=== PATIENT | male | born 1960 | race Caucasian/White ===

== ENCOUNTER 2020-08-17 15:46 | Emergency (ER) | payer OTHER, SELFPAY ==
[2020-08-17 15:49] VITALS: BP 149/96; PULSE 85; RESP 16; TEMP 36.1; O2SAT 96; BMI 31.2
--- NOTE | 2020-08-17 15:55 | ED.DCSUM_ITS ---
History of Present Illness Chief Complaint: Abd Pain Informant: Patient Onset: Days Context: Gradual Onset Timing: Intermittent Current Severity: Moderate Maximum Severity: Moderate Narrative: The patient is an otherwise healthy 59-year-old male who presents to the emergency department abdominal pain. The patient states that symptoms began on Monday director telemetry. He states that he went to sleep and had a dull aching pain in his left lower quadrant. He states he woke with worsening pain. He states he tried to move his bowels felt like he moved a lot of gas, but then felt like he had chills and sweats. States yesterday, it was not as significant, but it was still very tender in the area. He states if he moves, twists, or coughs he gets pain. He has had no further fever or chills. He does admit to some mild constipation. He does have history of 2 prior hernia repairs states the pain feels similar, but is a little bit different. He went to urgent care who was concerned for diverticulitis and sent him to the emergency department. Prior similar symptoms: No Recent Illness/Hospitalization: No Past Medical History - Allergies and Home Meds Allergies/Adverse Reactions: Allergies No Known Allergies Allergy (Verified 08/17/20 15:47) Primary Care Physician: Care Physician,No Primary [Primary Care Provider] - Prior records reviewed: Yes Past Medical History: None Surgical History: herniorrhaphy Lives: With Family Smoking Status: Former smoker Review of Systems General: Denies: Chills, Fever, Sweats Eyes: Denies: Visual changes - bilaterally, Diplopia ENT: Denies: Rhinorrhea, Sore throat Cardiovascular: Denies: Chest pain, Palpitations Respiratory: Denies: Dyspnea, Cough, Dyspnea on exertion Gastrointestinal: Reports: Abdominal pain. Denies: Nausea, Vomiting, Diarrhea, Melena, Hematochezia Genitourinary: Denies: Dysuria, Hematuria, Frequency Musculoskeletal: Denies: Back pain, Extremity Pain Skin: Denies: Rash, Wounds Neurological: Denies: Headache, Weakness, Numbness Physical Exam Vital Signs/Narrative: Vital Signs Temp Pulse Resp BP Pulse Ox 08/17/20 15:49 97 F L 85 16 149/96 H 96 Inital Vital Signs reviewed: Yes General: Well nourished, Well developed, No Acute Distress Head: Normocephalic, Atraumatic Eyes: Perrl, EOMI ENT: Moist mucous membranes, No rhinorrhea Neck: Supple, Nontender Cardiovascular: Regular rate, Regular rhythm, No murmurs Respiratory: No distress, CTA bilaterally, Chest nontender Abdomen: Soft, Nondistended, Normal bowel sounds, Tender. Negative for: Guarding, Rebound tenderness Back: Nontender, Normal Inspection Extremities: Nontender, No edema Skin: Normal color, No rash Neurological: Alert, Oriented x3, Cranial nerves II-XII grossly intact, Normal Strength, Normal Sensation Psychological: Normal affect, Normal Mood Diagnostic/Tx/Re-eval Clinical Impression(s) from Imaging Studies Abdomen/Pelvis CT 08/17/20 15:55 IMPRESSION: Finding consistent with acute distal descending colon diverticulitis without perforation or abscess. Other chronic findings as above. Electronically Signed: Asif Woodard MD at 18:24 EST , Service support , Abnormal Lab Results 08/17/20 08/17/20 08/17/20 16:05 16:05 16:10 WBC 13.0 H RBC 4.98 Hgb 16.0 Hct 44.0 MCV 88.4 MCH 32.1 H MCHC 36.4 H RDW Std Deviation 40.0 RDW Coeff of Martita 13.1 Plt Count 245 MPV 9.2 Immature Gran % (Auto) 0.500 Neut % (Auto) 78.7 H Lymph % (Auto) 12.5 L Reynolds % (Auto) 7.3 Eos % (Auto) 0.5 Baso % (Auto) 0.5 Absolute Neuts (auto) 10.2 H Absolute Lymphs (auto) 1.62 Nucleated RBC % 0 Sodium 135 L Potassium 3.7 Chloride 101 Carbon Dioxide 26.0 Anion Gap 8 BUN 12 Creatinine 1.14 Estim Creat Clear Calc 84.42 Est GFR (MDRD) Af Amer 85 Est GFR (MDRD) Non-Af 70 BUN/Creatinine Ratio 10.5 Glucose 92 Calcium 8.8 Total Bilirubin 1.00 AST 23 ALT 30 Alkaline Phosphatase 99 Total Protein 7.9 Albumin 3.8 Globulin 4.1 Albumin/Globulin Ratio 0.9 Urine Color Yellow Urine Clarity Clear Urine pH 6.0 Ur Specific [place] 1.015 Urine Protein Negative Urine Glucose (UA) Normal Urine Ketones 5 H Urine Occult Blood 10 H Urine Nitrite Negative Urine Bilirubin Negative Urine Urobilinogen Normal Ur Leukocyte Esterase Negative Urine RBC 0 SEEN Urine WBC 0 SEEN Ur Squamous Epith Cells 0 SEEN Urine Bacteria 0 SEEN Urine Mucus 0 SEEN - Medical Decision Making The patient presents with pain in his left lower quadrant. He is afebrile. Metabolic work-up was pursued. He does have a mild leukocytosis. Otherwise labs, were unremarkable. Patient underwent CT imaging. This does show evidence of acute uncomplicated diverticulitis. There is no perforation or abscess. On reevaluation, the patient is requesting outpatient therapy. I do feel this is reasonable. He is otherwise healthy. Is not had a fever. He does not want anything for pain. Patient will be started on Cipro and Flagyl. Is given his first dose here. He will follow up with primary care in 48 hours or return with any worsening symptoms. Impression 1. Acute diverticulitis ED Disposition - Plan for ED Patient: Instructions: ED Diverticulitis Prescriptions: Ciprofloxacin [Cipro] 500 mg PO BID #14 tab Prescription Printed metroNIDAZOLE [Flagyl] 500 mg PO Q8H #21 tab Prescription Printed Hydrocodone Bitart/Apap 5-325 [[place] 5MG-325MG] 1 tab PO Q6H PRN PRN 3 Days #10 tab PRN Reason: Pain Prescription Printed Referrals: Care Physician,No Primary [Primary Care Provider] -
--- NOTE | 2020-08-17 15:55 | CT_ITS ---
STUDY: CT ABDOMEN AND PELVIS WITH CONTRAST REASON FOR EXAM: Male, 59 years old. DIVERTICULITIS, LLQ PAIN WITH NAUSEA, PREV HERNIA RADIATION DOSAGE (If Supplied By Facility): CTDIvol = ( 16.32 ) mGy, DLP = ( 1234.11 ) mGycm TECHNIQUE: Transaxial images were obtained from the dome of the diaphragm to the symphysis pubis without oral contrast. IV 100mL Isovue-370 was administered. Sagittal and coronal images were reconstructed. Individualized dose optimization techniques were used for this CT. COMPARISON: None. FINDINGS: The visualized lung bases are unremarkable. The visualized portions of the heart are within normal limits. There is decreased attenuation of the liver consistent with steatosis. There is hepatomegaly Normal gallbladder and extrahepatic biliary system. Normal spleen. Normal pancreas. Normal bilateral adrenal glands. Normal right kidney. Normal left kidney. Evaluation of the GI tract is limited by the absence of oral contrast. Normal visualized stomach. Normal small intestine. Abnormal distal descending colon with numerous diverticuli, marked bowel wall thickening, and pericolonic stranding. Findings are consistent with acute diverticulitis without perforation or abscess. The appendix is visualized and appears normal. Normal abdominal aorta. Normal inferior vena cava. Normal retroperitoneum. Normal urinary bladder. There is enlargement of the prostate gland. Normal abdominal wall. Normal osseous structures. CT/Abdomen/Pelvis W IV Cont ONLY IMPRESSION: Finding consistent with acute distal descending colon diverticulitis without perforation or abscess. Other chronic findings as above. Electronically Signed: Asif Woodard MD at 18:24 EST , Service support ,
[2020-08-17] MEDS: 0.9% Normal Saline 1,000 ML 1000 ML IV (16:05)
[2020-08-17 16:17] LABS: Absolute Lymphocyte Count 1.62 X10^3/uL (0.83-4.51); Absolute Neutrophil Count 10.2 X10^3/uL (2.0-7.7); Basophil# 0.07 X10^3/uL; Basophil% 0.5 % (0-1); Eosinophil# 0.06 X10^3/uL; Eosinophils% 0.5 % (0-5); Lymphocyte # 1.62 X10^3/ul (4.0); Lymphocyte % 12.5 % (19-41); Mean Corp Hgb Conc 36.4 g/dL (32-36); Mean Corpuscular Hgb 32.1 pg (27.0-32.0); Mean Corpuscular Volume 88.4 fL (80-94); Mean Platelet Vol. 9.2 fl (6.2-12.0); Monocyte# 0.94 X10^3/uL; Monocyte% 7.3 % (0-10); NRBC Flagged by Analyzer 0 % (0-5); Neutrophil # 10.21 X10^3/uL (2.7-7.7); Neutrophil % 78.7 % (47-70); Platelet Count 245 K/mm3 (150-450); RBC Distribution Width CV 13.1 % (11.6-14.6); Red Blood Count 4.98 M/mm3 (4.6-6.2)
[2020-08-17 16:26] LABS: Bacteria 0 SEEN /hpf (None Seen); Mucous, Urine 0 SEEN /hpf (<or=2+); Red Blood Cells-Urine 0 SEEN /hpf (0-5); Squamous Epithelial Cells - UA 0 SEEN /hpf (0-5); White Blood Cells 0 SEEN /hpf (0-5)
[2020-08-17 16:31] LABS: Color, Urine Yellow (Yellow); Glucose, Dipstick Normal (Normal); Ketone-Dipstick 5 mg/dl (Negative); Leukocyte Esterase-Dipstick Negative /ul (Negative); Nitrite-Dipstick Negative (Negative); Occult Blood-Urine 10 /ul (Negative); Protein-Dipstick Negative (Negative); Specific Gravity, Urine 1.015 (1.002-1.030); Urine Bilirubin Dipstick Negative (Negative); Urine Clarity Clear (Clear); Urine Urobilinogen Normal (Normal)
[2020-08-17 16:57] LABS: ALB/GLOB Ratio 0.9 RATIO (0.9-2.4); AST(SGOT) 23 U/L (15-37); Alanine Aminotransfer ALT/SGPT 30 U/L (16-61); Albumin, Serum 3.8 g/dL (3.2-5.0); Alkaline Phosphatase 99 U/L (45-117); Anion Gap 8 (5-15); BUN 12 mg/dL (7-18); BUN/Creat Ratio 10.5 RATIO (10-20); Calcium,Total 8.8 mg/dL (8.5-10.1); Chloride 101 mmol/L (98-107); Creatinine, Serum 1.14 mg/dL (0.70-1.30); EST Glomerular Filtration Rate 70 mL/min (>60); Est Glom Filt Rate - Afr Amer 85 mL/min (>60); Estimated Creatinine Clearance 84.42 ml/min; Globulin 4.1 g/dL (2.2-4.2); Glucose 92 mg/dL (74-106); Potassium 3.7 mmol/L (3.5-5.1); Protein, Total 7.9 g/dL (6.4-8.2); Sodium Level 135 mmol/L (136-145)
[2020-08-17 18:45] VITALS: BP 141/57; PULSE 69; RESP 14; O2SAT 96
[2020-08-17] MEDS: Ciprofloxacin 500 MG Tablet PO (18:45)
[2020-08-17] MEDS: metroNIDAZOLE 500 MG Tablet PO (18:45)
== END 2020-08-17 18:46 | disposition home or self-care (01) ==
LOC: ED 16:48
PROVIDERS: Emergency Provider Emergency Medicine
DX: K57.92 Diverticulitis of intestine, part unspecified, without perforation or abscess without bleeding (principal); Z87.891 Personal history of nicotine dependence
CPT/HCPCS: 74177; 80053; 81001; 85025; 96360; 96361; 99284; J7030; Q9967

== ENCOUNTER → 2025-01-01 | Outpatient (CLI) | payer OTHER, SELFPAY ==
[2025-01-02 11:15] LABS: Cholesterol 206 mg/dL (<=200); High Density Lipoprotein 44 mg/dL; Low Density Lipoprotein Calc. 145 mg/dL; Triglycerides 87 mg/dL; Very Low Density Lipoprotein 17 mg/dL (5-40)
== END | disposition home or self-care (01) ==
LOC: MTLAB 10:44
PROVIDERS: PCP Nurse Practitioner; Referring Provider Nurse Practitioner; Visit Provider Nurse Practitioner
DX: E78.5 Hyperlipidemia, unspecified (principal)
CPT/HCPCS: 36415; 80061

== ENCOUNTER → 2025-05-06 | Outpatient (CLI) | payer OTHER, SELFPAY ==
--- OUTSIDE RECORDS SUMMARY | 2025-05-06 12:09 | XMS RPT_ITS | CCD ---
Author Organization [facility] Care Team Providers Care Emergency Service Restorer Name Role Phone Dimitry Pope MD Primary Care Provider Dania MACHINE LACER.Indira PATEL Primary Care Provide r Dania MACHINE LACER.Indira PATEL Primary Care Provide r Dimitry Pope MD Primary Care Provider Dania SALES OPERATIONS MANAGER-C, Indira Primary Care Provider Dania SALES OPERATIONS MANAGER-C, Indira Attending Provider Dania SALES OPERATIONS MANAGER-C, Indira Referring Provider Dania SALES OPERATIONS MANAGER, Indira Referring Unavailable Dania SALES OPERATIONS MANAGER, Indira Attending Unavailable Dania SALES OPERATIONS MANAGER, Indira Primary Care Unavailable INDIRA NAJERA Primary Care Unavailable INDIRA NAJERA Attending Unavailable IVETH MONTOYA Attending Unavailable INDIRA NAJERA Primary Care Unavailable IVETH MONTOYA Referring Unavailable INDIRA NAJERA Primary Care Unavailable Medications Current Medications Medication Drug Class(es) Dates Sig (Normalized) Sig (Original) ciprofloxacin 500 mg oral tablet (1 source) Quinolone Antimicrobial Start: 08-17-2020 take 1 tablet by mouth twice daily Ciprofloxacin Hcl 500 MG tablet Active 500 mg PO TWICE A DAY August 17, 2020 1:00am metroNIDAZOLE 500 mg oral tablet (1 source) Nitroimidazole Antimicrobial Start: 08-17-2020 take 1 tablet by mouth every eight hours Metronidazole 500 MG tablet Active 500 mg PO Q8H August 17, 2020 1:00am tamsulosin hydrochloride 0.4 mg oral capsule (19 sources) alpha-Adrenergic Talya Start: 11-13-2024 take 1 capsule by mouth once daily at bedtime tamsulosin (FLOMAX) 0.4 mg Indications: Nocturia Take 1 capsule by mouth daily at bedtime. 90 capsule 3 11/13/2024 Active Start: 10-28-2024 End: 11-05-2024 take 1 capsule by mouth once daily at bedtime tamsulosin (FLOMAX) 0.4 mg Indications: Nocturia Take 1 capsule by mouth daily at bedtime. 90 capsule 3 10/28/2024 11/05/2024 Discontinued Start: 04-11-2024 End: 10-22-2024 take 1 capsule by mouth once daily at bedtime tamsulosin (FLOMAX) 0.4 mg Indications: Nocturia Take 1 capsule by mouth daily at bedtime. 90 capsule 3 05/07/2024 10/22/2024 Discontinued Start: 12-20-2022 End: 04-08-2024 take 1 capsule by mouth at bedtime tamsulosin (FLOMAX) 0.4 mg Indications: Nocturia take 1 capsule by mouth at bedtime 90 capsule 3 03/28/2023 04/08/2024 Discontinued Comment on above: Take 1 capsule by mo uth daily at bedtime. take 1 capsule by mo uth at bedtime Completed/Discontinued Medications Medication Drug Class(es) Dates Sig (Normalized) Sig (Original) acetaminophen 325 mg / HYDROcodone bitartrate 5 mg oral tablet (1 source) Opioid Agonist Start: 08-17-2020 End: 08-20-2020 Hydrocodone-Acetami nophen 1 TABLET tablet Discontinued 1 {tbl} PO EVERY 6 HOURS NEEDED as needed for Pain 10 August 17, 2020 August 19, 2020 1:00am August 20, 2020 1:02am Problems Active Problems Problem Classification Problem Date Documented Da te Episodic/Chronic Disorders of lipid metabolism (3 sources) Dyslipidemia; Translations: [Hyperlipidemia, unspecified] Onset: 12-27-2024 12-27-2024 Chronic Immunizations and screening for infectious disease (2 sources) Viral screening status; Translations: [Encounter for screening for other viral diseases] Episodic Osteoarthritis (1 source) Arthropathy of joint of hand; Translations: [Primary osteoarthritis, unspecified hand] 07-31-2023 Chronic Other nutritional; endocrine; and metabolic disorders (16 sources) Obese class I; Translations: [Obesity, unspecified] Onset: 11-16-2022 11-16-2022 Chronic Residual codes; unclassified (1 source) Family history of hemochromatosis; Translations: [Family history of other endocrine, nutritional and metabolic diseases] Episodic Residual codes; unclassified (2 sources) Pain; Translations: [Pain, unspecified] 07-31-2023 Episodic Screening and history of mental health and substance abuse codes (2 sources) Encounter for screening for depression; Translations: [Encounter for screening examination for other mental health and behavioral disorders] Onset: 12-27-2024 Episodic Unclassified (1 source) Obesity, Class I, BMI 30-34.9; Translations: [Obesity, Class I, BMI 30-34.9] Onset: 11-16-2022 Past or Other Problems Problem Classification Problem Date Documented Da te Episodic/Chronic Genitourinary symptoms and ill-defined conditions (20 sources) Slowing of urinary stream; Translations: [Other difficulties with micturition] Onset: 11-16-2022 Episodic Other connective tissue disease (16 sources) Chronic pain of left upper limb; Translations: [Pain in left finger(s)] Onset: 11-16-2022 Episodic Other ear and sense organ disorders (16 sources) Bilateral tinnitus; Translations: [Tinnitus, bilateral] Onset: 11-16-2022 Episodic Other screening for suspected conditions (not mental disorders or infectious disease) (9 sources) Patient encounter status; Translations: [Encounter for screening for malignant neoplasm of prostate] Onset: 05-07-2024 Episodic Results Test Name Value Interpretation Reference Range Facility [facility] 01-03-2025 [facility] Telephone (INTMWS) CALE MCKEON ([id number]) 1960 M Date Time Provider Department 01/03/25 INDIRA NAJERA INTWS During your visit today, we recorded the following information about you: Sis Cruz LPN 01/03/2025 8:51 AM Addendum Lipids completed at [facility]. View External Labs - lipids [ID [id number]] Indira Najera APRN.CNP 01/08/2025 7:19 AM Signed Please let the patient know his cholesterol was close to goal however he is still at high risk for heart disease. Treatment with statins is recommended Indira Najrea APRN.Reema Doss MA 01/08/2025 8:33 AM Signed Patient was left vm to call office back SHIRLEY Charles Stephanie, RN 01/09/2025 11:11 AM Signed Patient notified of results and provider's instructions. Patient verbalizes understanding. Patient states that he is going to hold tight on getting a statin. Patient states he has retired and he has better eating habits. Susy Isaac RN Allergies As of Date: 01/03/2025 (No Known Allergies) Date Reviewed: 12/27/2024 Reviewed by: Indira Najera APRN.JORGE - Fully Assessed Reason for Visit: Results [95] Prescriptions as of 01/13/2025 - tamsulosin (FLOMAX) 0.4 mg Take 1 capsule by mouth daily at bedtime. Problem List As Of Date 01/03/2025 Noted Resolved Obesity, Class I, BMI 30-34.9 [E66.811] 11/16/2022 Chronic pain of left thumb [M79.645, G89.29] 11/16/2022 Decreased urine stream [R39.198] 11/16/2022 Tinnitus of both ears [H93.13] 11/16/2022 Encounter Status:Closed by SSI CRUZ on 01/13/25 Normal [facility] Lip[facility] Profile[facility] 01-02-2025 CHOL:HDL 4.70 Normal [facility] Comment on above: Performed By: #### L [id number] #### [facility] [address] [place], [address] Cholesterol [Mass/Vol] 206 mg/dL High <=200 [facility] Comment on above: Result Comment: Chol esterol level, Desirable <200 mg/dL Borderline high cholesterol 200-239 mg/dL High cholesterol >=240 mg/dL Recommendations of the NCEP Adult Treatment Panel for the following risk-cutoff thresholds for the [place] population. Performed By: #### L 500.4100 #### [facility] [address] [place], [address] Cholesterol in HDL [Mass/Vol] 44 mg/dL Normal [facility] Comment on above: Result Comment: Yolanda onal Cholesterol Education Program (NCEP) guidelines: <40 mg/dL: Low HDL-cholesterol (major risk factor for CHD) >= 60 mg/dL: High HDL-cholesterol (negative risk factor for CHD) HDL-cholesterol is affected by a number of factors, e.g. smoking, exercise, hormones, sex and age. Performed By: #### L 500.4100 #### [facility] [address] [place], [address] Cholesterol in LDL [Mass/Vol] 145 mg/dL Normal [facility] Comment on above: Result Comment: Bord eufgzg=249-909 mg/dL Higher Gfnz=553 mg/dL or greater Performed By: #### L 500.4100 #### [facility] [address] [facility] [address] Cholesterol in VLDL [Mass/Vol] 17 mg/dL Normal 5-40 [facility] Comment on above: Performed By: #### L 500.4100 #### [facility] [address] [place], [address] Triglyceride [Mass/Vol] 87 mg/dL Normal [facility] Comment on above: Result Comment: The drugs N-Acetylcysteine and Metamizole may falsely depress this assay. Normal range: <150 mg/dL Borderline High: 150-199 mg/dL High: 200-499 mg/dL Very High: >500 mg/dL Performed By: #### L 500.4100 #### [facility] [address] [place], [address] Calculated very low density lipoprotein (VLDL) cholesterol measurementOrdered By: Indira on 01-01-2025 Calculated very low density lipoprotein (VLDL) cholesterol measurement 17 mg/dL 5-40 [facility] LDL calc ser/plasOrdered By: Indira 01-01-2025 Cholesterol in LDL [Mass/Vol] 145 mg/dL [facility] Comment on above: Bfalfvkwsc=614-755 m g/dL & Higher Nklx=002 mg/dL or greater Screening total cholesterol/ high density lipoprotein (HDL) cholesterol ratioOrdered By: Indira on 01-01-2025 Cholesterol.total/Delia sterol in HDL [Mass ratio] 4.70 {ratio} [facility] Serum or plasma cholesterol in HDL measurement (mass/volume)Ordered By: Indira on 01-01-2025 Cholesterol in HDL [Mass/Vol] 44 mg/dL >40 [facility] Comment on above: National Cholesterol Education Program (NCEP) guidelines:<40 mg/dL: Low HDL-cholesterol (major risk factor for CHD)>= 60 mg/dL: High HDL-cholesterol (negative risk factor for CHD)HDL-cholesterol is affected by a number of factors, e.g. smoking, exercise, hormones, sex and age. Serum or plasma cholesterol measurement (mass/volume)Ordered By: Indira 01-01-2025 Cholesterol [Mass/Vol] 206 mg/dL High <201 [facility] Comment on above: Cholesterol level, D esirable <200 mg/dLBorderline high cholesterol 200-239 mg/dLHigh cholesterol >=240 mg/dLRecommendations of the NCEP Adult Treatment Panel for the following risk-cutoff thresholds for the [place] population. Triglycerides measurementOrd ered By: Indira on 01-01-2025 Triglyceride [Mass/Vol] 87 mg/dL <199 [facility] Comment on above: The drugs N-Acetylcy steine and Metamizole may falsely depress this assay. Normal range: <150 mg/dLBorderline High: 150-199 mg/dLHigh: 200-499 mg/dLVery High: >500 mg/dL CNOVon 12-27-2024 CNOV Office Visit (INTMWS) CALE MCKEON ([id number]) 1960 M Date Time Provider Department 12/27/24 8:20 AM INDIRA NAJERA INTMWS During your visit today, we recorded the following information about you: Pulse Respiration Blood pressure Weight 66/minute 14/minute 116/70 111.4 kg Height 1.875 m Indira Najera, MACHINE LACER.BUILDINGS AND GROUNDS SUPERINTENDENT 12/27/2024 8:50 AM Signed CC: Patient presents with: Physical HPI Recording using [employer] software for draft documentation of the visit was discussed with the patient/authorized patient portal representative; all questions welcomed and answered. Patient/authorized patient portal representative agreed to proceed Cale is a 64-year-old male presenting for an annual physical examination. Cale denies any specific concerns at this time. He reports a stable weight of approximately 245 lbs, with a slight decrease from 248 lbs in April of the previous year. He is not currently engaged in regular exercise but has increased his activity level since retiring a year ago. He describes his diet as healthy, focusing on portion control and adequate water intake. He has reduced his alcohol consumption to 2-3 hard beverages per week. Cale expresses curiosity about various supplements and medications advertised for hair loss, memory enhancement, and joint health, but is concerned about potential adverse effects. Review of Systems Constitutional: Negative for chills, diaphoresis, fatigue, fever and unexpected weight change. Respiratory: Negative for cough, shortness of breath and wheezing. Cardiovascular: Negative for chest pain, palpitations and leg swelling. Gastrointestinal: Negative for abdominal pain, blood in stool, constipation, diarrhea, nausea and vomiting. Neurological: Negative for dizziness, syncope, weakness, light-headedness, numbness and headaches. PAST MEDICAL HISTORY Diagnosis Date Chronic pain of left thumb Decreased urine stream 12/20/2022 Elevated prostate specific antigen (PSA) 12/20/2022 Tinnitus of both ears PAST SURGICAL HISTORY Procedure Laterality Date INGUINAL HERNIA REPAIR HX x2, about 20 years ago TOOTH EXTRACTION [place] teeth x 4 ALLERGIES Patient has no known allergies. MEDICATIONS tamsulosin (FLOMAX) 0.4 mg Take 1 capsule by mouth daily at bedtime. FAMILY HISTORY Problem Relation Age of Onset Colon Cancer Mother diagnosed at age 86 Blood Disease Father hemochromatosis Cancer Sister pesticide caused Multiple Sclerosis Sister No Known Problems Maternal Grandmother No Known Problems Paternal Grandfather Social History Tobacco Use Smoking status: Never Smokeless tobacco: Never Vaping Use Vaping status: Never Used Substance Use Topics Alcohol use: Yes Alcohol/week: 3.0 standard drinks of alcohol Types: 3 Shots of liquor per week Drug use: Not Currently Types: Marijuana, LSD BP 116/70 Pulse 66 Resp 14 Ht 187.5 cm (6' 1.82) Wt 111.4 kg (245 lb 9.5 oz) SpO2 97% BMI 31.69 kg/m? Physical Exam Vitals reviewed. Constitutional: Appearance: Normal appearance. Eyes: Conjunctiva/sclera: Conjunctivae normal. Neck: Thyroid: No thyroid mass, thyromegaly or thyroid tenderness. Cardiovascular: Rate and Rhythm: Normal rate and regular rhythm. Heart sounds: Normal heart sounds. No murmur heard. Pulmonary: Effort: Pulmonary effort is normal. Breath sounds: Normal breath sounds. No wheezing, rhonchi or rales. Abdominal: General: There is no distension. Tenderness: There is no abdominal tenderness. Lymphadenopathy: Cervical: No cervical adenopathy. Skin: General: Skin is warm and dry. Neurological: Mental Status: He is alert. Psychiatric: Mood and Affect: Mood normal. Health maintenance reviewed with patient: DTaP,Tdap,Td Vaccine(1 - Tdap) Never done Shingrix Vaccine(1 of 2) Never done Pneumococcal Vaccine: 50+(1 of 1 - PCV) Never done Covid-19 Vaccine( - season) due on 12/27/2025 Influenza Vaccine(Season Ended) due on 04/14/2025 Diabetes Screening due on 11/17/2025 Colorectal Cancer Screening due on 11/21/2025 Depression Screening due on 12/27/2025 Anxiety Screening due on 12/27/2025 Lipid Screening due on 11/18/2027 Prostate Cancer Screening Discussion due on 12/20/2028 RSV Vaccine(1 - 1-dose 75+ series) due on 2036 Hepatitis C Screening Completed HIV Screening Completed DATA REVIEWED: Most recent labs Assessment/Plan 1. Wellness examination (Z00.00) Comprehensive physical examination performed. Vital signs: BP 116/70 mmHg, HR 66 bpm. Weight: 245 lbs, stable compared to last year (248 lbs). No acute concerns reported. Patient is currently on tamsulosin and under urology care with PSA monitoring. - Scheduled follow-up for annual physical in one year. 2. Obesity, Class I, BMI 30-34.9 (E66.811) Weight stable at 245 lbs. Patient is retired and reports increased activity com (more content not included)... Normal [facility] CNPNon 05-20-2024 CNPN Telephone (UROLST) CALE MCKEON ([id number]) 1960 Date Time Provider Department 05/20/24 IVETH MONTOYA UROLSFrancie During your visit today, we recorded the following information about you: Iveth Montoya PA-C 05/20/2024 6:26 PM Signed Please notify patient that his IsoPSA came back at 8.9% % and a PSA of 5.79 The IsoPSA being greater than 6.1% indicates there is a risk of high grade prostate cancer in the next 10 years So a prostate biopsy is recommended. Orders have been placed for biopsy if he wished to have biopsy I will arrange procedure with staff Urologist If he wishes to discuss results I am happy to discuss at visit. CHERISE Avila, VAMSI, Anastacio Malagon LPN 05/21/2024 9:37 AM Signed Called patient. Verified name and date of . Patient informed and verbalizes understanding. Patient states he does want to wait on doing prostate biopsy and will repeat PSA next year. States he is pleased with having baseline and will follow before having biopsy done. Patient aware if he changes his mind to let us know. Anastacio Duvall LPN Allergies As of Date: 05/20/2024 (No Known Allergies) Date Reviewed: 05/07/2024 Reviewed by: Anastacio Duvall LPN - Fully Assessed Reason for Visit: Results [95] Prescriptions as of 05/21/2024 - tamsulosin (FLOMAX) 0.4 mg Take 1 capsule by mouth daily at bedtime. Problem List As Of Date 05/20/2024 Noted Resolved Obesity, Class I, BMI 30-34.9 [E66.811] 11/16/2022 Chronic pain of left thumb [M79.645, G89.29] 11/16/2022 Decreased urine stream [R39.198] 11/16/2022 Tinnitus of both ears [H93.13] 11/16/2022 Encounter Status:Closed by ANASTACIO DUVALL on 05/21/24 Normal [facility] ISOPSA ASSAY FOR UROLOGY USE ONLYon 05-16-2024 INTERPRETATION View results in Scanned Documents link when available. Normal [facility] Comment on above: Order Comment: Speci men Type: BLOOD SPECIMEN Ordering Facility: [facility] Address: [address] [place] [address] Performed By: #### I SOPSA #### [facility] CLIA [id number] [address] [address] ISOPSA INDEX 8.9 Normal [facility] Comment on above: Order Comment: Speci men Type: BLOOD SPECIMEN Ordering Facility: [facility] Address: [address] [place] [address] Performed By: #### I SOPSA #### [facility] CLIA [id number] [address] [address] TPSA RESULTS 5.780 Normal [facility] Comment on above: Order Comment: Speci men Type: BLOOD SPECIMEN Ordering Facility: [facility] Address: [address] [place] [address] Performed By: #### I SOPSA #### [facility] CLIA [id number] [address] [address] CNOVon 05-07-2024 CNOV Office Visit (UROLWS) CALE MCKEON ([id number]) 1960 M Date Time Provider Department 05/07/24 4:30 PM IVETH MONTOYA UROLHERNANDEZ During your visit today, we recorded the following information about you: Temperature Pulse Respiration Blood pressure 97.7 degrees 80/minute 14/minute 120/82 Weight Height 112.5 kg 1.905 m Anastacio Duvall LPN 05/07/2024 9:07 PM Signed Verified name and date of . CC Post Void Residual HPI: Cale Mckeon is a 63 year old male. The patient is here now for an appointment with CHERISE Avila MT, PA-COV. Procedure: Explained procedure to patient and verbalizes understanding. Performed a PVR. Patient urinated and instructed to empty bladder as much as possible just prior to having PVR done using bladder ultrasound scanner. Results of scan: 37 mL The patient tolerated the procedure well. Plan: Appointment with Iveth. Iveth Montoya PA-C 05/07/2024 9:01 PM Addendum > Flomax at bedtime if still LH/Dizzy we will switch to Cardura or Hytrin instead >Refill Flomax at [facility] > IsoPSA > PSA in 1 year Iveth Montoya PA-C 05/07/2024 9:07 PM Signed [facility] EST PATIENT CLINIC NOTE NAME: Cale Mckeon CHIEF COMPLAINT: Elevated PSA and weak urine stream HISTORY OF PRESENT ILLNESS: Cale Mckeon is a 63 year old male follow-ing up for weak urine stream elevated PSA The patient reports he has been having a weaker stream over a few years and a recent PSA showed mild elevation We discussed common causes and treatment options currently on Flomax PSA - 5.59 PVR 37 ml if still LH/Dizzy we will switch to Cardura or Hytrin instead LUTS: DYSURIA: no URGENCY: No FREQUENCY:4 per day NOCTURIA: 2 per night STRAINING TO VOID: No EMPTIES COMPLETELY: No UTI: No GROSS HEMATURIA: no UA DIPSTICK POSITIVE ONLY: no Other symptoms: LABS: No results found for: TESTOST No results found for: TESTFREE PSA (ng/mL) Date Value 12/21/2023 5.59 06/22/2023 4.04 PSA Screening (ng/mL) Date Value 11/17/2022 3.52 Hematocrit (%) Date Value 11/17/2022 46.5 PSA (ng/mL) Date Value 12/21/2023 5.59 06/22/2023 4.04 PSA Screening (ng/mL) Date Value 11/17/2022 3.52 Creatinine Date Value Ref Range Status 11/17/2022 1.10 0.73 - 1.22 mg/dL Final MEDICATIONS: tamsulosin (FLOMAX) 0.4 mg Take 1 capsule by mouth daily at bedtime. PAST MEDICAL HISTORY: PAST MEDICAL HISTORY Diagnosis Date Chronic pain of left thumb Decreased urine stream 12/20/2022 Elevated prostate specific antigen (PSA) 12/20/2022 Tinnitus of both ears REVIEW OF SYSTEMS: GENERAL: No fever, chills, weight loss, or fatigue. PHYSICAL EXAMINATION: Blood pressure 120/82, pulse 80, temperature 36.5 ?C (97.7 ?F), temperature source Temporal, resp. rate 14, height 190.5 cm (6' 3), weight 112.5 kg (248 lb), SpO2 97%. GENERAL: WNL nutrition, no deformities, healthy appearing GENITOURINARY: MALE EXAM: Rectal Exam: Prostate: size (30 grams), symmetrical, nontender, w/o nodules. PROBLEM LIST REVIEW: Yes LABS: Results for orders placed or performed in visit on 05/07/24 UA DIP, URINE (POC) Result Value Ref Range GLUCOSE UA (POCT) Negative Negative mg/dL BILIRUBIN UA (POCT) Negative Negative KETONE UA (POCT) Negative Negative mg/dL SPECIFIC GRAVITY UA (POCT) >=1.030 1.005 - 1.030 HEMOGLOBIN/BLOOD UA (POCT) Negative Negative PH UA (POCT) 5.0 4.5 - 8.0 PROTEIN UA (POCT) Negative Negative mg/dL UROBILINOGEN UA (POCT) 0.2 Normal E.U./dL NITRITE UA (POCT) Negative Negative LEUKOCYTES UA (POCT) Negative Negative COLOR UA (POCT) Yellow CLARITY UA (POCT) Clear PROCEDURES: PVR: 37 ml IMAGING: IMPRESSION/PLAN: 1. Elevated prostate specific antigen (PSA) - ICD9: 790.93, ICD10: R97.20 (primary diagnosis) 2. Decreased urine stream - ICD9: 788.62, ICD10: R39.198 3. Screening for genitourinary condition - ICD9: V81.6, ICD10: Z13.89 4. Nocturia - ICD9: 788.43, ICD10: R35.1 > PSA of 5.59, FREDRICK- 30 g benign , contacted PSA with [facility] message recommending IsoPSA to see if prostate biopsy is indicated > Flomax working well some LH/Dizziness but taking in AM will switch to bed time > if still LH/Dizzy we will switch to Cardura or Hytrin instead > 1 year Appt w/ CHERISE Dyson MT, PA-C with PSA prior CHERISE Avila MT, PA-C Allergies As of Date: 05/07/2024 (No Known Allergies) Date Reviewed: 05/07/2024 Reviewed by: Anastacio Duvall LPN - Fully Assessed Reason for Visit: Follow Up [171] Elevated PSA [3906] Primary Visit Diagnosis:Elevated prostate specific antigen (PSA) [R97.20] Other Visit Diagnoses:Decreased urine stream [R39.198] Screening for genitourinary condition [Z13.89] Nocturia [R35.1] Order(s):POST VOID RESIDUAL [[id number]] Order #: [id number] UA DIP, (more content not included)... Normal [facility] Susan 05-07-2024 [facility] (UROLWS) CALE MCKEON ([id number]) 1960 M Date Time Provider Department 05/07/24 IVETH MONTOYA During your visit today, we recorded the following information about you: Anastacio Duvall LPN 05/07/2024 8:31 AM Signed Called patient. Verified name and date of . Patient aware in-person appointment is needed rather than virtual. Patient requests to keep appointment and will be here in person. Anastacio Duvall LPN Allergies As of Date: 05/07/2024 (No Known Allergies) Date Reviewed: 07/31/2023 Reviewed by: Lisette Cardenas PA-C - Fully Assessed Reason for Visit: Appointment [186] Prescriptions as of 05/07/2024 - tamsulosin (FLOMAX) 0.4 mg Take 1 capsule by mouth daily at bedtime. Problem List As Of Date 05/07/2024 Noted Resolved Obesity, Class I, BMI 30-34.9 [E66.9] 11/16/2022 Chronic pain of left thumb [M79.645, G89.29] 11/16/2022 Decreased urine stream [R39.198] 11/16/2022 Tinnitus of both ears [H93.13] 11/16/2022 Encounter Status:Closed by ANASTACIO DUVALL on 05/07/24 Normal [facility] UA DIP, URINE (POC)on 2023 BILIRUBIN UA (POCT) Negative Negative [facility] CLARITY UA (POCT) Clear [facility] COLOR UA (POCT) Yellow [place] [facility]SE UA (POCT) Negative Negative mg/dL [facility] Hemoglobin Ql (U) Negative Negative [facility] KETONE UA (POCT) Negative Negative mg/dL [facility] LEUKOCYTES UA (POCT) Negative Negative [facility] NITRITE UA (POCT) Negative Negative [facility] PH UA (POCT) 5.0 4.5 - 8.0 [facility] Protein Ql (U) Negative Negative mg/dL [facility] SPECIFIC GRAVITY UA (POCT) >=1.030 1.005 - 1.030 [facility] UROBILINOGEN UA (POCT) 0.2 Normal E.U./d L [facility] Location:[facility], [address], [place], [place], [id number] [place] [address] POINT OF CARE [facility] XR Finger - left AP and Late ral and obliqueon 06-28-2023 IMPRESSION: First carpometacarpal joint degenerative changes Logistics Operations Director: JUSTIN Transcribe Date/Time: Jun 28 2023 11:20A Dictated by : ALEKSANDRA FINN MD This examination was interpreted and the report reviewed and electronically signed by: ALEKSANDRA FINN MD on Jun 28 2023 11:21AM EST DIVISION OF RADIOLOGY * * *Final Report* * * DATE OF EXAM: Jun 28 2023 11:13AM WOX [id number] - XR DIGIT 3V FRONTAL/LAT/OBL LT / PROCEDURE REASON: Pain * * * * Physician Interpretation * * * * TITLE: XR DIGIT 3V FRONTAL/LAT/OBL LT CLINICAL INDICATION: Pain TECHNIQUE: 3 view radiographic study of the left thumb COMPARISON: None FINDINGS: No acute fracture or dislocation identified. Mild first carpal metacarpal joint degenerative changes with joint space narrowing, subchondral sclerosis and marginal osteophyte formation. DIVISION OF RADIOLOGY Provider, [facility] [place] - 06/28/2023 * * *Final Report* * * DATE OF EXAM: Jun 28 2023 11:13AM WOX [id number] - XR DIGIT 3V FRONTAL/LAT/OBL LT / PROCEDURE REASON: Pain * * * * Physician Interpretation * * * * TITLE: XR DIGIT 3V FRONTAL/LAT/OBL LT CLINICAL INDICATION: Pain TECHNIQUE: 3 view radiographic study of the left thumb COMPARISON: None FINDINGS: No acute fracture or dislocation identified. Mild first carpal metacarpal joint degenerative changes with joint space narrowing, subchondral sclerosis and marginal osteophyte formation. IMPRESSION IMPRESSION: First carpometacarpal joint degenerative changes Logistics Operations Director: JUSTIN Transcribe Date/Time: Jun 28 2023 11:20A Dictated by : ALEKSANDRA FINN MD This examination was interpreted and the report reviewed and electronically signed by: ALEKSANDRA FINN MD on Jun 28 2023 11:21AM EST [facility] Radiology Study observation (narrative) [facility] XR Finger - left AP and Late ral and obliqueOrdered By: [facility] Provider on 06-28-2023 [facility] UA DIP, URINE (POC)on 2022 BILIRUBIN UA (POCT) Negative Negative [facility] CLARITY UA (POCT) Clear [facility] COLOR UA (POCT) Yellow [facility] GLUCOSE UA (POCT) Negative Negative mg/dL [facility] HEMOGLOBIN/BLOOD UA (POCT) Negative Negative [facility] KETONE UA (POCT) Negative Negative mg/dL [facility] LEUKOCYTES UA (POCT) Negative Negative [facility] NITRITE UA (POCT) Negative Negative [facility] PH UA (POCT) 5.5 4.5 - 8.0 [facility] Protein Ql (U) Negative Negative mg/dL [facility] SPECIFIC GRAVITY UA (POCT) 1.020 1.005 - 1.030 [facility] UROBILINOGEN UA (POCT) 0.2 E.U./dL Normal E.U./ dL [facility] Vital Signs Date Time Vital Sign Value Performing Clinician Jacky morel 12-27-2024 08:21-0400 Body height 187.5 cm Indira Najera APRN.JORGE Work Phone: [facility] 12-27-2024 08:21-0400 Body mass index (BMI) [Ratio] 31.69 kg/m2 Indira Najera APRN.CNP Work Phone: [facility] 12-27-2024 08:21-0400 Body weight 111.4 kg Indira Najera APRN.JORGE Work Phone: [facility] 12-27-2024 08:21-0400 Diastolic blood pressure 70 mm[Hg] Indira Najera APRN.BUILDINGS AND GROUNDS SUPERINTENDENT Work Phone: [facility] 12-27-2024 08:21-0400 Heart rate 66 /min Indira Najera APRN.BUILDINGS AND GROUNDS SUPERINTENDENT Work Phone: [facility] 12-27-2024 08:21-0400 Respiratory rate 14 /min Indira Najera APRN.BUILDINGS AND GROUNDS SUPERINTENDENT Work Phone: [facility] 12-27-2024 08:21-0400 SaO2% (BldA) [Mass fraction] 97 % Indira Najera APRN.CNP Work Phone: [facility] 12-27-2024 08:21-0400 Systolic blood pressure 116 mm[Hg] Indira Najera APRN.CNP Work Phone: [facility] 05-07-2024 16:24-0400 Body height 190.5 cm Iveth Montoya PA-C Work Phone: [facility] 05-07-2024 16:24-0400 Body mass index (BMI) [Ratio] 31 kg/m2 Iveth Montoya PA-C Work Phone: [facility] 05-07-2024 16:24-0400 Body temperature 97.7 [degF] Iveth Montoya PA-C Work Phone: [facility] 05-07-2024 16:24-0400 Body weight 112.49 kg Iveth Montoya PA-C Work Phone: [facility] 05-07-2024 16:24-0400 Diastolic blood pressure 82 mm[Hg] Iveth Montoya PA-C Work Phone: [facility] 05-07-2024 16:24-0400 Heart rate 80 /min Iveth Montoya PA-C Work Phone: [facility] 05-07-2024 16:24-0400 Respiratory rate 14 /min Iveth Montoya PA-C Work Phone: [facility] 05-07-2024 16:24-0400 SaO2% (BldA) [Mass fraction] 97 % Iveth Montoya PA-C Work Phone: [facility] 05-07-2024 16:24-0400 Systolic blood pressure 120 mm[Hg] Iveth Montoya PA-C Work Phone: [facility] 07-31-2023 14:14-0500 Body height 190.5 cm Lisette Leesi PA-C Work Phone: [facility] 12-20-2022 13:23-0400 Body height 188 cm Iveth Montoya PA-C Work Phone: [facility] 12-20-2022 13:23-0400 Body temperature 97.7 [degF] Iveth Montoya PA-C Work Phone: [facility] 12-20-2022 13:23-0400 Body weight 114.31 kg Iveth Montoya PA-C Work Phone: [facility] 12-20-2022 13:23-0400 Diastolic blood pressure 78 mm[Hg] Iveth Montoya PA-C Work Phone: [facility] 12-20-2022 13:23-0400 Heart rate 76 /min Iveth Montoya PA-C Work Phone: [facility] 12-20-2022 13:23-0400 Respiratory rate 14 /min Iveth Montoya PA-C Work Phone: [facility] 12-20-2022 13:23-0400 SaO2% (BldA) [Mass fraction] 96 % Iveth Montoya PA-C Work Phone: [facility] 12-20-2022 13:23-0400 Systolic blood pressure 114 mm[Hg] Iveth Montoya PA-C Work Phone: [facility] 11-16-2022 17:27-0400 Body height 188 cm Indira Older MACHINE LACER.BUILDINGS AND GROUNDS SUPERINTENDENT Work Phone: [facility] 11-16-2022 17:27-0400 Body weight 114.31 kg Indira Older MACHINE LACER.BUILDINGS AND GROUNDS SUPERINTENDENT Work Phone: [facility] 11-16-2022 17:27-0400 Diastolic blood pressure 78 mm[Hg] Indira Older MACHINE LACER.BUILDINGS AND GROUNDS SUPERINTENDENT Work Phone: [facility] 11-16-2022 17:27-0400 Heart rate 69 /min Indira Older MACHINE LACER.BUILDINGS AND GROUNDS SUPERINTENDENT Work Phone: [facility] 11-16-2022 17:27-0400 Respiratory rate 16 /min Indira Older MACHINE LACER.BUILDINGS AND GROUNDS SUPERINTENDENT Work Phone: [facility] 11-16-2022 17:27-0400 SaO2% (BldA) [Mass fraction] 97 % Indira Older MACHINE LACER.BUILDINGS AND GROUNDS SUPERINTENDENT Work Phone: [facility] 11-16-2022 17:27-0400 Systolic blood pressure 116 mm[Hg] Indira Vaughan MACHINE LACER.BUILDINGS AND GROUNDS SUPERINTENDENT Work Phone: [facility] Encounters Encounter Date Encounter Type Care Provider Facility Start: 01-03-2025 End: 01-13-2025 Telephone encounter Indira Najera MACHINE LACER.BUILDINGS AND GROUNDS SUPERINTENDENT Work Phone: [facility] [place] Comment on above: Results Start: 01-01-2025 End: 01-01-2025 ambulatory Indira Dania SALES OPERATIONS MANAGER-C Work Phone: [facility] Work Phone: Start: 01-01-2025 End: 01-01-2025 Patient encounter procedure Indira Clement SALES OPERATIONS MANAGER-C [facility] [place] Work Phone: Start: 01-01-2025 End: 01-01-2025 ambulatory Indira Najera SALES OPERATIONS MANAGER Facility:[facility] Start: 12-27-2024 End: 12-27-2024 Patient encounter status Indira Najera MACHINE LACER.BUILDINGS AND GROUNDS SUPERINTENDENT Work Phone: [facility] Work Phone: Start: 12-27-2024 End: 12-27-2024 Periodic preventive med est patient 40-64yrs Indira Najera MACHINE LACER.BUILDINGS AND GROUNDS SUPERINTENDENT Work Phone: [facility] [place] Comment on above: Wellness examination (Primary Dx); Obesity, Class I, BMI 30-34.9; Dyslipidemia; Screening for depression; Encounter for screening examination for other mental health and behavioral disorders Start: 12-27-2024 End: 12-27-2024 ambulatory INDIRA Jonatan DANIA Facility:[facility] Start: 12-27-2024 Encounter for genera l adult medical examination without abnormal findings INDIRA Cheung DANIA [facility] Start: 11-05-2024 End: 11-13-2024 Refill Iveth Montoya PA-C Work Phone: Urology Comment on above: Refill Request Start: 10-22-2024 End: 10-28-2024 Refill Iveth Montoya PA-C Work Phone: Urology Comment on above: Refill Request Start: 05-20-2024 End: 05-21-2024 Telephone encounter Iveth Montoya PA-C Work Phone: Urology Comment on above: Results Start: 05-16-2024 End: 05-16-2024 ambulatory IVETH MONTOYA Facility:[facility] Start: 05-07-2024 End: 05-07-2024 Patient encounter procedure Iveth Montoya PA-C Work Phone: Urology Comment on above: Elevated prostate sp ecific antigen (PSA) (Primary Dx); Decreased urine stream; Screening for genitourinary condition; Nocturia Start: 05-07-2024 End: 05-20-2024 ambulatory Iveth Montoya PA-C Work Phone: Urology Comment on above: PSA Elevated Start: 05-07-2024 End: 05-20-2024 E-mail encounter from caregiver Iveth CEE-C Work Phone: Urology Start: 05-07-2024 End: 05-07-2024 Telephone encounter Iveth Montoya PA-C Work Phone: Urology Comment on above: Appointment Start: 04-23-2024 End: 04-23-2024 ambulatory Iveth Montoya PA-C Work Phone: Urology Comment on above: Lab tests? Start: 04-08-2024 End: 04-11-2024 Refill Iveth Montoya PA-C Work Phone: Urology Comment on above: Refill Request Start: 07-31-2023 End: 07-31-2023 Patient encounter procedure Lisette Theresa PA-C Work Phone: Orthopaedics Comment on above: [facility] arthritis (Prima ry Dx); Pain Start: 06-28-2023 End: 06-28-2023 Subsequent hospital visit by physician Andrés [facility] René Work Phone: Radiology Comment on above: Pain [R52] Start: 03-23-2023 Refill Iveth Montoya PA-C Work Phone: Urology Comment on above: Refill Request Start: 12-20-2022 End: 12-20-2022 Patient encounter procedure Iveth Montoya PA-C Work Phone: Urology Comment on above: Elevated prostate sp ecific antigen (PSA) (Primary Dx); Decreased urine stream; Nocturia Start: 11-16-2022 End: 11-16-2022 Patient encounter procedure Indira Vaughan APRN.CNP Work Phone: [facility] [place] Comment on above: Wellness examination (Primary Dx); Decreased urine stream; Chronic pain of left thumb; Tinnitus of both ears; Screening for prostate cancer; Special screening examination for viral disease; Screening for HIV (human immunodeficiency virus); Screening for colon cancer; Family history of hemochromatosis Start: 11-16-2022 End: 11-16-2022 Patient encounter status Indira Older MACHINE LACER.JORGE Work Phone: [facility] [place] Procedures Date Procedure Procedure Detail Performing Clinician Start: 12-27-2024 Adult depression screening assessment Indira Najera APRN.CNP Work Phone: Start: 05-07-2024 Urnls dip stick/tabl et rgnt auto w/o microscopy Iveth Montoya PA-C Work Phone: Start: 06-28-2023 Radex fingr minimum 2 views Duyen Urban APRN.CNP Work Phone: Start: 12-20-2022 Urnls dip stick/tabl et rgnt auto w/o microscopy Iveth Montoya PA-C Work Phone: Start: 11-17-2022 Lipid 1996 panel - S aris or Plasma Lisette Cardenas PA-C Work Phone: Plan of Treatment Date Care Activity Detail Author Start: 2036 RSV Vaccine (1 - 1-d ose 75+ series) RSV Vaccine (1 - 1-dose 75+ series) [facility] Start: 12-20-2028 Prostate specific antigen measurement Prostate Cancer Screening Discussion [facility] Start: 06-22-2028 Prostate specific antigen measurement Prostate Cancer Screening Discussion [facility] Start: 11-18-2027 Lipid panel Lipid Screening [facility] Start: 11-18-2027 LIPID SCREEN LIPID SCREEN [facility] Start: 11-18-2027 PROSTATE CANCER SCREENING DISCUSSION PROSTATE CANCER SCREENING DISCUSSION [facility] Start: 12-29-2025 End: 12-29-2025 Patient encounter procedure 12/29/2025 10:40 AM EDT Office Visit [facility] [place] [address] [place], [place] [address] Indira Najera, MACHINE LACER.BUILDINGS AND GROUNDS SUPERINTENDENT [address] [place], [place] [address] annual [facility] [place] Comment on above: annual Start: 12-27-2025 Anxiety Screening Anxiety Screening [facility] Start: 12-27-2025 Covid-19 Vaccine () Covid-19 Vaccine () [facility] Comment on above: Postponed from 04/14 (Declined at this time) Start: 12-27-2025 Depression Screening Depression Scre ening [facility] Start: 11-21-2025 COLOGUARD (FIT-DNA) COLOGUARD (FIT-D NA) [facility] Start: 11-21-2025 COLORECTAL CANCER SCREENING COLORECTAL CANCER SCREENING [facility] Start: 11-21-2025 Screening for malign ant neoplasm of colon [facility] Start: 11-17-2025 DIABET[facility] Start: 11-17-2025 Diabetes Screening Diabetes Screenin g [facility] Start: 05-13-2025 End: 05-13-2025 Patient encounter procedure 05/13/2025 4:00 PM EDT Office Visit Urology [address] [place], [place] [address] Iveth Montoya PA-C [address] [place] [address] Yearly follow up- elevated PSA, Weak Stream, Nocturia Urology Comment on above: Yearly follow up- el evated PSA, Weak Stream, Nocturia Start: 05-07-2025 End: 08-06-2025 Prostate specific Ag [Mass/volume] in Serum or Plasma PROSTATE-SPECIFIC ANTIGEN DIAGNOSTIC Lab Routine Elevated prostate specific antigen (PSA) Nocturia Expected: 05/07/2025 (Approximate), Expires: 08/06/2025 [facility] Comment on above: Expected: 05/07/2025 (Approximate), Expires: 08/06/2025 Start: 04-14-2025 Influenza vaccination Influenz a Vaccine (Season Ended) [facility] Start: 12-27-2024 End: 03-28-2025 Lipid 1996 panel - Serum or Plasma LIPID PANEL, FASTING Lab Routine Dyslipidemia Expected: 12/27/2024, Expires: 03/28/2025 [facility] Work Phone: Comment on above: Expected: 12/27/2024 , Expires: 03/28/2025 Start: 05-08-2024 End: 08-07-2024 ISOPSA ASSAY FOR UROLOGY USE ONLY ISOPSA ASSAY FOR UROLOGY USE ONLY Lab Routine Elevated prostate specific antigen (PSA) Expected: 05/08/2024 (Approximate), Expires: 08/07/2024 [facility] Comment on above: Expected: 05/08/2024 (Approximate), Expires: 08/07/2024 Start: 05-07-2024 End: 05-07-2024 [facility] Comment on above: FOLLOW UP MEDICATION REFILL Start: 04-14-2024 Covid-19 Vaccine ( season) Covid-19 Vaccine () [facility] Start: 04-14-2024 Covid-19 Vaccine ( season) Covid-19 Vaccine ( season) [facility] Start: 04-14-2024 Influenza vaccination Influenza Vacc ine (#1) [facility] Start: 12-21-2023 End: 02-20-2024 Prostate specific Ag [Mass/volume] in Serum or Plasma PSA/PROSTSPECAG DIAG Lab Routine Elevated prostate specific antigen (PSA) Expected: 12/21/2023 (Approximate), Expires: 02/20/2024 [facility] Work Phone: Comment on above: Expected: 12/21/2023 (Approximate), Expires: 02/20/2024 Start: 11-17-2023 COVID-19 VACCINE (3 - Booster for Elie series) COVID-19 VACCINE (3 - Booster for Elie series) [facility] Comment on above: Postponed from 10/05 (Declined at this time) Start: 11-17-2023 SHINGRIX VACCINE (1 of 2) SHINGRIX VACCINE (1 of 2) [facility] Comment on above: Postponed from 12/16 (Declined at this time) Start: 11-17-2023 Urine microalbumin profile [facility] Comment on above: Postponed from 12/16 (Declined at this time) Start: 06-22-2023 End: 08-22-2023 Prostate specific Ag [Mass/volume] in Serum or Plasma PSA/PROSTSPECAG DIAG Lab Routine Elevated prostate specific antigen (PSA) Expected: 06/22/2023 (Approximate), Expires: 08/22/2023 [facility] Work Phone: Comment on above: Expected: 06/22/2023 (Approximate), Expires: 08/22/2023 Start: 04-14-2023 Covid-19 Vaccine ( season) Covid-19 Vaccine () [facility] Start: 04-14-2023 Influenza vaccination [facility] Start: 11-16-2022 End: 01-16-2023 CBC W Auto Differential panel - Blood CBC + DIFF Lab Routine Wellness examination Family history of hemochromatosis Expected: 11/16/2022, Expires: 01/16/2023 [facility] Work Phone: Comment on above: Expected: 11/16/2022 , Expires: 01/16/2023 Start: 11-16-2022 End: 01-16-2023 Comprehensive metabolic 2000 panel - Serum or Plasma COMP METABOLIC PANEL Lab Routine Wellness examination Expected: 11/16/2022, Expires: 01/16/2023 [facility] Work Phone: Comment on above: Expected: 11/16/2022 , Expires: 01/16/2023 Start: 11-16-2022 End: 01-16-2023 Ferritin [Mass/volume] in Serum or Plasma FERRITIN BLD Lab Routine Wellness examination Family history of hemochromatosis Expected: 11/16/2022, Expires: 01/16/2023 [facility] Work Phone: Comment on above: Expected: 11/16/2022 , Expires: 01/16/2023 Start: 11-16-2022 End: 01-16-2023 Hepatitis C virus Ab [Presence] in Serum HEP C AB IA W/CONF SCRN Lab Routine Special screening examination for viral disease Expected: 11/16/2022, Expires: 01/16/2023 [facility] Work Phone: Comment on above: Expected: 11/16/2022 , Expires: 01/16/2023 Start: 11-16-2022 End: 01-16-2023 HIV 1+2 Ab [Presence] in Serum or Plasma by Immunoassay HIV 1 2 COMBO(AG/AB),WITH REFLEX TO DIFFERENTIATION Lab Routine Screening for HIV (human immunodeficiency virus) Expected: 11/16/2022, Expires: 01/16/2023 [facility] Work Phone: Comment on above: Expected: 11/16/2022 , Expires: 01/16/2023 Start: 11-16-2022 End: 01-16-2023 Iron and Iron binding capacity panel - Serum or Plasma IRON + TIBC Lab Routine Wellness examination Family history of hemochromatosis Expected: 11/16/2022, Expires: 01/16/2023 [facility] Work Phone: Comment on above: Expected: 11/16/2022 , Expires: 01/16/2023 Start: 11-16-2022 End: 01-16-2023 Lipid 1996 panel - Serum or Plasma LIPID PANEL BASIC Lab Routine Wellness examination Expected: 11/16/2022, Expires: 01/16/2023 [facility] Work Phone: Comment on above: Expected: 11/16/2022 , Expires: 01/16/2023 Start: 11-16-2022 End: 01-16-2023 PSA/PROSTSPECAG SCRN PSA/PROSTSPECAG SCRN Lab Routine Screening for prostate cancer Expected: 11/16/2022, Expires: 01/16/2023 [facility] Work Phone: Comment on above: Expected: 11/16/2022 , Expires: 01/16/2023 Start: 2021 RSV Vaccine (1 - 1-d ose 60+ series) RSV Vaccine (1 - 1-dose 60+ series) [facility] Start: 2016 PROSTATE CANCER SCREENING DISCUSSION PROSTATE CANCER SCREENING DISCUSSION [facility] Start: 12-17-2011 Pneumococcal Vaccine : 50+ (1 of 1 - PCV) Pneumococcal Vaccine: 50+ (1 of 1 - PCV) [facility] Start: 12-17-2011 Shingrix Vaccine (1 of 2) Shingrix Vaccine (1 of 2) [facility] Start: 2006 COLOGUARD (FIT-DNA) COLOGUARD (FIT-D NA) [facility] Start: 2006 Colonoscopy COLONOSCOPY [facility] Start: 2006 COLORECTAL CANCER SCREENING COLORECTAL CANCER SCREENING [facility] Start: [address] COLONOGRAPHY [facility] Start: 2006 DIABETES SCREEN DIABETES SCREEN [facility] Start: 2006 FECAL OCCULT BLOOD FECAL OCCULT BLOO D [facility] Start: 2006 Screening for malign ant neoplasm of colon [facility] Start: 2006 SIGMOIDOSCOPY SIGMOIDOSCOPY [facility] Start: 1996 LIPID SCREEN LIPID SCREEN [facility] Start: 1980 Urine microalbumin profile DTaP,Tdap,Td Vaccine (1 - Tdap) [facility] Start: 12-17-1979 Anxiety Screening Anxiety Screening [facility] Start: 12-17-1979 Depression Screening Depression Scre ening [facility] Start: 12-17-1979 HEPATITIS C SCREENING HEPATITIS C SC REENING [facility] Start: 12-17-1979 HIV SCREENING HIV SCREENING [facility] COLOGUARD COLOGUARD Lab Ro utine Screening for colon cancer Ordered: 11/16/2022 [facility] Work Phone: Comment on above: Ordered: 11/16/2022 POST VOID RESIDUAL POST VOID RES IDUAL Procedures Routine Decreased urine stream Ordered: 12/20/2022 [facility] Work Phone: Comment on above: Ordered: 12/20/2022 POST VOID RESIDUAL POST VOID RES IDUAL Procedures Routine Elevated prostate specific antigen (PSA) Decreased urine stream Screening for genitourinary condition Ordered: 05/07/2024 [facility] Work Phone: Comment on above: Ordered: 05/07/2024 [place] Payers Date Payer Category Payer Self-pay 2024 [facility] [place] [id number] 2024 Unknown [id number] 2024 Unknown [employer] [place] [id number] 2024-Present [phone] [address] [place] [address] PPO [id number] 2024 Unknown [id number] 2022 Private Health Insurance [id number] Self-pay [id number] Unknown [id number] Social History Date Type Detail Facility Start: 11-16-2022 Tobacco smoking stat us [facility]IS Never smoked tobacco [facility] Start: 11-16-2022 Tobacco use and exposure Smoke less tobacco non-user [facility] Start: 11-16-2022 End: 01-08-2025 Alcohol intake Current drinker of alcohol (finding) [facility] Start: 11-16-2022 End: 12-20-2022 Alcohol intake [facility] Start: 11-10-2022 History SDOH Alcohol Frequency 5 [facility] Start: 11-10-2022 History SDOH Alcohol Std Drinks 1 [facility] Start: 11-10-2022 History SDOH Social Connections Get Together 3 [facility] Start: 11-10-2022 History SDOH Physica l Activity DPW 0 [facility] Start: 11-10-2022 History SDOH Stress 2 [facility] Start: 11-16-2022 Alcohol Comment one hard liquo r beverage daily [facility] Start: 1960 Sex Assigned At Not on file C [facility] Start: 11-09-2022 End: 12-20-2022 Social connection and isolation panel [facility] Do you belong to any clubs or organizations such as confucianism groups, unions, fraternal or athletic groups, or school groups? Yes [facility] Are you now , , , , never or living with a partner? [facility] How often to you hav e a drink containing alcohol? 4 or more times a week [facility] How many standard dr inks containing alcohol do you have on a typical day? 1 or 2 [facility] How often do you hav e 6 or more drinks on 1 occasion? Never [facility] How hard is it for y ou to pay for the very basics like food, housing, medical care, and heating Not hard at all [facility] Do you feel stress - tense, restless, nervous, or anxious, or unable to sleep at night because your mind is troubled all the time - these days [OSQ] Only a little [facility] (I/We) worried inder er (my/our) food would run out before (I/we) got money to buy more. Never true [facility] In the past 12 month s, was there a time when you were not able to pay the mortgage or rent on time? No [facility] Start: 08-17-2020 Tobacco smoking stat us NHIS Ex-smoker (finding) [facility] Start: 08-17-2020 Lives Lives [facility] Start: 1960 Sex Assigned At Male W [facility] Clinical Notes 11-16-2022 to 01-09-2025 Telephone Encounter - Susy Isaac RN - 01/09/2025 11:10 AM EDTTelephone Encounter - Reema Saez MA - 01/08/2025 8:32 AM EDTPatient InstructionsPatient InstructionsPatient Instructions Note Date & Type Note Facility 01-09-2025 Miscellaneous Notes Patient notified of results and provider's instructions. Patient verbalizes understanding. Patient states that he is going to hold tight on getting a statin. Patient states he has retired and he has better eating habits. Susy Isaac RN Patient was left vm to call office back Reema Saez MA Please let the patient know his cholesterol was close to goal however he is still at high risk for heart disease. Treatment with statins is recommended Indira Najera APRN.CNP Lipids completed at [facility]. View External Labs - lipids [ID [id number]] documented in this encounter [facility] 01-09-2025 Telephone encounter Note Patient notified of results and provider's instructions. Patient verbalizes understanding. Patient states that he is going to hold tight on getting a statin. Patient states he has retired and he has better eating habits. Susy Isaac RN [facility] 01-08-2025 Telephone encounter Note Patient was left vm to call office back Reema Saez MA [facility] 01-08-2025 Telephone encounter Note Please let the patient know his cholesterol was close to goal however he is still at high risk for heart disease. Treatment with statins is recommended Indira Najera APRN.JORGE [facility] 01-03-2025 Telephone encounter Note Lipids completed at [facility]. View External Labs - lipids [ID [id number]] [facility] 12-27-2024 Instructions Indira Najera APRN.JORGE - 12/27/2024 8:47 AM EDT We discussed your annual physical and overall health: - Your blood pressure today was excellent at 116/70, and your heart rate was normal at 66. Your weight was 245 lbs, which is consistent with your previous weight of 248 lbs from last year. - You reported being more active since retiring, which is great. While this may not always reflect in weight changes, it can positively impact other health markers like blood pressure and cholesterol. - Continue aiming for a healthy diet with fruits and vegetables and maintaining portion control. You mentioned drinking plenty of water and limiting alcohol to 2-3 drinks per week, which is good. Keep avoiding sugary drinks, smoking, and vaping. We discussed your cholesterol: - Your last cholesterol check was two years ago, and it was elevated. I recommend rechecking it with a fasting lab. - Please fast for 10-12 hours before the test (you may drink water). The lab order has been printed for you to take to [facility], as required by your insurance. You can walk in for the test without an appointment. We discussed [id number] supplements and vitamins. Based on your diet and overall health, additional supplements are likely unnecessary unless medically indicated. If you have specific concerns, feel free to discuss them with me. or sleep. Your annual depression and anxiety screenings were normal. Follow-Up: - Please complete your fasting cholesterol lab at [facility] at your earliest convenience. - We will see you back in one year for your next annual physical. This has been scheduled for you. Let us know if you have any questions or concerns before your next visit. documented in this encounter [facility] 12-27-2024 Note HNO ID: [id number] Author: INDIRA NAJERA APRN.JORGE Service: ? Author Type: Nurse Practitioner Type: Progress Notes Filed: 12/27/2024 08:50 Note Text: CC: Patient presents with: Physical HPI Recording using [employer] software for draft documentation of the visit was discussed with the patient/authorized patient portal representative; all questions welcomed and answered. Patient/authorized patient portal representative agreed to proceed Cale is a 64-year-old male presenting for an annual physical examination. Cale denies any specific concerns at this time. He reports a stable weight of approximately 245 lbs, with a slight decrease from 248 lbs in April of the previous year. He is not currently engaged in regular exercise but has increased his activity level since retiring a year ago. He describes his diet as healthy, focusing on portion control and adequate water intake. He has reduced his alcohol consumption to 2-3 hard beverages per week. Cale expresses curiosity about various supplements and medications advertised for hair loss, memory enhancement, and joint health, but is concerned about potential adverse effects. Review of Systems Constitutional: Negative for chills, diaphoresis, fatigue, fever and unexpected weight change. Respiratory: Negative for cough, shortness of breath and wheezing. Cardiovascular: Negative for chest pain, palpitations and leg swelling. Gastrointestinal: Negative for abdominal pain, blood in stool, constipation, diarrhea, nausea and vomiting. Neurological: Negative for dizziness, syncope, weakness, light-headedness, numbness and headaches. PAST MEDICAL HISTORY Diagnosis Date Chronic pain of left thumb Decreased urine stream 12/20/2022 Elevated prostate specific antigen (PSA) 12/20/2022 Tinnitus of both ears PAST SURGICAL HISTORY Procedure Laterality Date INGUINAL HERNIA REPAIR HX x2, about 20 years ago TOOTH EXTRACTION [place] teeth x 4 ALLERGIES Patient has no known allergies. MEDICATIONS tamsulosin (FLOMAX) 0.4 mg Take 1 capsule by mouth daily at bedtime. FAMILY HISTORY Problem Relation Age of Onset Colon Cancer Mother diagnosed at age 86 Blood Disease Father hemochromatosis Cancer Sister pesticide caused Multiple Sclerosis Sister No Known Problems Maternal Grandmother No Known Problems Paternal Grandfather Social History Tobacco Use Smoking status: Never Smokeless tobacco: Never Vaping Use Vaping status: Never Used Substance Use Topics Alcohol use: Yes Alcohol/week: 3.0 standard drinks of alcohol Types: 3 Shots of liquor per week Drug use: Not Currently Types: Marijuana, LSD BP 116/70 Pulse 66 Resp 14 Ht 187.5 cm (6' 1.82) Wt 111.4 kg (245 lb 9.5 oz) SpO2 97% BMI 31.69 kg/m? Physical Exam Vitals reviewed. Constitutional: Appearance: Normal appearance. Eyes: Conjunctiva/sclera: Conjunctivae normal. Neck: Thyroid: No thyroid mass, thyromegaly or thyroid tenderness. Cardiovascular: Rate and Rhythm: Normal rate and regular rhythm. Heart sounds: Normal heart sounds. No murmur heard. Pulmonary: Effort: Pulmonary effort is normal. Breath sounds: Normal breath sounds. No wheezing, rhonchi or rales. Abdominal: General: There is no distension. Tenderness: There is no abdominal tenderness. Lymphadenopathy: Cervical: No cervical adenopathy. Skin: General: Skin is warm and dry. Neurological: Mental Status: He is alert. Psychiatric: Mood and Affect: Mood normal. Health maintenance reviewed with patient: DTaP,Tdap,Td Vaccine(1 - Tdap) Never done Shingrix Vaccine(1 of 2) Never done Pneumococcal Vaccine: 50+(1 of 1 - PCV) Never done Covid-19 Vaccine( season) due on 12/27/2025 Influenza Vaccine(Season Ended) due on 04/14/2025 Diabetes Screening due on 11/17/2025 Colorectal Cancer Screening due on 11/21/2025 Depression Screening due on 12/27/2025 Anxiety Screening due on 12/27/2025 Lipid Screening due on 11/18/2027 Prostate Cancer Screening Discussion due on 12/20/2028 RSV Vaccine(1 - 1-dose 75+ series) due on 2036 Hepatitis C Screening Completed HIV Screening Completed DATA REVIEWED: Most recent labs Assessment/Plan 1. Wellness examination (Z00.00) Comprehensive physical examination performed. Vital signs: BP 116/70 mmHg, HR 66 bpm. Weight: 245 lbs, stable compared to last year (248 lbs). No acute concerns reported. Patient is currently on tamsulosin and under urology care with PSA monitoring. - Scheduled follow-up for annual physical in one year. 2. Obesity, Class I, BMI 30-34.9 (E66.811) Weight stable at 245 lbs. Patient is retired and reports increased activity compared to previous sedentary lifestyle. Diet reportedly healthy with adequate water intake and reduced alcohol consumption. - Encouraged continued physical activity and maintaining a balanced diet. 3. Dyslipidemia (E78.5) Last cholesterol check was two years ago and was elevated. (more content not included)... [facility] 12-27-2024 History of Presen t illness Narrative CC: Patient presents with: Physical HPI Recording using [employer] software for draft documentation of the visit was discussed with the patient/authorized patient portal representative; all questions welcomed and answered. Patient/authorized patient portal representative agreed to proceed Cale is a 64-year-old male presenting for an annual physical examination. Cale denies any specific concerns at this time. He reports a stable weight of approximately 245 lbs, with a slight decrease from 248 lbs in April of the previous year. He is not currently engaged in regular exercise but has increased his activity level since retiring a year ago. He describes his diet as healthy, focusing on portion control and adequate water intake. He has reduced his alcohol consumption to 2-3 hard beverages per week. Cale expresses curiosity about various supplements and medications advertised for hair loss, memory enhancement, and joint health, but is concerned about potential adverse effects. Review of Systems Constitutional: Negative for chills, diaphoresis, fatigue, fever and unexpected weight change. Respiratory: Negative for cough, shortness of breath and wheezing. Cardiovascular: Negative for chest pain, palpitations and leg swelling. Gastrointestinal: Negative for abdominal pain, blood in stool, constipation, diarrhea, nausea and vomiting. Neurological: Negative for dizziness, syncope, weakness, light-headedness, numbness and headaches. PAST MEDICAL HISTORY Diagnosis Date Chronic pain of left thumb Decreased urine stream 12/20/2022 Elevated prostate specific antigen (PSA) 12/20/2022 Tinnitus of both ears PAST SURGICAL HISTORY Procedure Laterality Date INGUINAL HERNIA REPAIR HX x2, about 20 years ago TOOTH EXTRACTION [place] teeth x 4 ALLERGIES Patient has no known allergies. MEDICATIONS tamsulosin (FLOMAX) 0.4 mg Take 1 capsule by mouth daily at bedtime. FAMILY HISTORY Problem Relation Age of Onset Colon Cancer Mother diagnosed at age 86 Blood Disease Father hemochromatosis Cancer Sister pesticide caused Multiple Sclerosis Sister No Known Problems Maternal Grandmother No Known Problems Paternal Grandfather Social History Tobacco Use Smoking status: Never Smokeless tobacco: Never Vaping Use Vaping status: Never Used Substance Use Topics Alcohol use: Yes Alcohol/week: 3.0 standard drinks of alcohol Types: 3 Shots of liquor per week Drug use: Not Currently Types: Marijuana, LSD BP 116/70 Pulse 66 Resp 14 Ht 187.5 cm (6' 1.82) Wt 111.4 kg (245 lb 9.5 oz) SpO2 97% BMI 31.69 kg/m Physical Exam Vitals reviewed. Constitutional: Appearance: Normal appearance. Eyes: Conjunctiva/sclera: Conjunctivae normal. Neck: Thyroid: No thyroid mass, thyromegaly or thyroid tenderness. Cardiovascular: Rate and Rhythm: Normal rate and regular rhythm. Heart sounds: Normal heart sounds. No murmur heard. Pulmonary: Effort: Pulmonary effort is normal. Breath sounds: Normal breath sounds. No wheezing, rhonchi or rales. Abdominal: General: There is no distension. Tenderness: There is no abdominal tenderness. Lymphadenopathy: Cervical: No cervical adenopathy. Skin: General: Skin is warm and dry. Neurological: Mental Status: He is alert. Psychiatric: Mood and Affect: Mood normal. Health maintenance reviewed with patient: DTaP,Tdap,Td Vaccine(1 - Tdap) Never done Shingrix Vaccine(1 of 2) Never done Pneumococcal Vaccine: 50+(1 of 1 - PCV) Never done Covid-19 Vaccine( season) due on 12/27/2025 Influenza Vaccine(Season Ended) due on 04/14/2025 Diabetes Screening due on 11/17/2025 Colorectal Cancer Screening due on 11/21/2025 Depression Screening due on 12/27/2025 Anxiety Screening due on 12/27/2025 Lipid Screening due on 11/18/2027 Prostate Cancer Screening Discussion due on 12/20/2028 RSV Vaccine(1 - 1-dose 75+ series) due on 2036 Hepatitis C Screening Completed HIV Screening Completed DATA REVIEWED: Most recent labs Assessment/Plan 1. Wellness examination (Z00.00) Comprehensive physical examination performed. Vital signs: BP 116/70 mmHg, HR 66 bpm. Weight: 245 lbs, stable compared to last year (248 lbs). No acute concerns reported. Patient is currently on tamsulosin and under urology care with PSA monitoring. - Scheduled follow-up for annual physical in one year. 2. Obesity, Class I, BMI 30-34.9 (E66.811) Weight stable at 245 lbs. Patient is retired and reports increased activity compared to previous sedentary lifestyle. Diet reportedly healthy with adequate water intake and reduced alcohol consumption. - Encouraged continued physical activity and maintaining a balanced diet. 3. Dyslipidemia (E78.5) Last cholesterol check was two years ago and was elevated. - Ordered fasting lipid panel. Provided instructions for fasting 10-12 hours prior to the test. - Printed lab order for patient to take to [facility]. 4. Screening for depression (Z13.31) Depression screening score was 0, indicating no current depressive symptoms. 5. Encounter for screening examination for other mental health and behavioral disorders (Z13.39) Anxiety screening score was 0. Discussed normalcy of occasional anxiety and signs of excessive anxiety. Prescription instructions reviewed with patient as applicable. Potential red flag symptoms discussed with the patient. Reviewed appropriate action plan to take if red flag symptoms occur. Patient agreeable to treatment plan. nIdira Najera APRN.[employer]PER[employer]ENT documented in this encounter [facility] 11-06-2024 Telephone encounter Note [facility] 05/07/2024 with Iveth Montoya PA-C 05/13/2025 with Iveth Montoya PA-C Per patient, the recently approved Rx was sent to the wrong pharmacy per patient error via my chart. Patient would like Rx to be sent to the pharmacy in this encounter. Patient requesting refills as follows: Requested Prescriptions Pending Prescriptions Disp Refills tamsulosin (FLOMAX) 0.4 mg 90 capsule 3 Sig: Take 1 capsule by mouth daily at bedtime. Please review and advise. Ruby Higuera RN [facility] 11-06-2024 Miscellaneous Notes [facility] 05/07/2024 with Iveth Montoya PA-C 05/13/2025 with Iveth Montoya PA-C Per patient, the recently approved Rx was sent to the wrong pharmacy per patient error via my chart. Patient would like Rx to be sent to the pharmacy in this encounter. Patient requesting refills as follows: Requested Prescriptions Pending Prescriptions Disp Refills tamsulosin (FLOMAX) 0.4 mg 90 capsule 3 Sig: Take 1 capsule by mouth daily at bedtime. Please review and advise. Ruby Higuera RN documented in this encounter [facility] 10-23-2024 Telephone encounter Note [facility] 05/07/24 Patient phones requesting refills as follows: Requested Prescriptions Pending Prescriptions Disp Refills tamsulosin (FLOMAX) 0.4 mg 90 capsule 3 Sig: Take 1 capsule by mouth daily at bedtime. Please review and advise. Jose Luis Brown RN [facility] 10-23-2024 Miscellaneous Notes [facility] 05/07/24 Patient phones requesting refills as follows: Requested Prescriptions Pending Prescriptions Disp Refills tamsulosin (FLOMAX) 0.4 mg 90 capsule 3 Sig: Take 1 capsule by mouth daily at bedtime. Please review and advise. Jose Luis Brown RN documented in this encounter [facility] 05-21-2024 Telephone encounter Note Called patient. Verified name and date of . Patient informed and verbalizes understanding. Patient states he does want to wait on doing prostate biopsy and will repeat PSA next year. States he is pleased with having baseline and will follow before having biopsy done. Patient aware if he changes his mind to let us know. Anastacio Duvall LPN [facility] 05-21-2024 Miscellaneous Notes Called patient. Verified name and date of . Patient informed and verbalizes understanding. Patient states he does want to wait on doing prostate biopsy and will repeat PSA next year. States he is pleased with having baseline and will follow before having biopsy done. Patient aware if he changes his mind to let us know. Anastacio Duvall LPN Please notify patient that his IsoPSA came back at 8.9% % and a PSA of 5.79 The IsoPSA being greater than 6.1% indicates there is a risk of high grade prostate cancer in the next 10 years So a prostate biopsy is recommended. Orders have been placed for biopsy if he wished to have biopsy I will arrange procedure with staff Urologist If he wishes to discuss results I am happy to discuss at visit. CHERISE Avila, VAMSI, GUZMAN documented in this encounter [facility] 05-20-2024 Telephone encounter Note Please notify patient that his IsoPSA came back at 8.9% % and a PSA of 5.79 The IsoPSA being greater than 6.1% indicates there is a risk of high grade prostate cancer in the next 10 years So a prostate biopsy is recommended. Orders have been placed for biopsy if he wished to have biopsy I will arrange procedure with staff Urologist If he wishes to discuss results I am happy to discuss at visit. CHERISE Avila, GUZMAN AGUSTIN [facility] 05-07-2024 Note HNO ID: [id number] Author: IVETH MONTOYA PA-C Service: ? Author Type: Physician Dial Brusher Type: Progress Notes Filed: 05/07/2024 21:07 Note Text: [facility] EST PATIENT CLINIC NOTE NAME: Cale Mckeon CHIEF COMPLAINT: Elevated PSA and weak urine stream HISTORY OF PRESENT ILLNESS: Cale Mckeon is a 63 year old male follow-ing up for weak urine stream elevated PSA The patient reports he has been having a weaker stream over a few years and a recent PSA showed mild elevation We discussed common causes and treatment options currently on Flomax PSA - 5.59 PVR 37 ml if still LH/Dizzy we will switch to Cardura or Hytrin instead LUTS: DYSURIA: no URGENCY: No FREQUENCY:4 per day NOCTURIA: 2 per night STRAINING TO VOID: No EMPTIES COMPLETELY: No UTI: No GROSS HEMATURIA: no UA DIPSTICK POSITIVE ONLY: no Other symptoms: LABS: No results found for: TESTOST No results found for: TESTFREE PSA (ng/mL) Date Value 12/21/2023 5.59 06/22/2023 4.04 PSA Screening (ng/mL) Date Value 11/17/2022 3.52 Hematocrit (%) Date Value 11/17/2022 46.5 PSA (ng/mL) Date Value 12/21/2023 5.59 06/22/2023 4.04 PSA Screening (ng/mL) Date Value 11/17/2022 3.52 Creatinine Date Value Ref Range Status 11/17/2022 1.10 0.73 - 1.22 mg/dL Final MEDICATIONS: tamsulosin (FLOMAX) 0.4 mg Take 1 capsule by mouth daily at bedtime. PAST MEDICAL HISTORY: PAST MEDICAL HISTORY Diagnosis Date Chronic pain of left thumb Decreased urine stream 12/20/2022 Elevated prostate specific antigen (PSA) 12/20/2022 Tinnitus of both ears REVIEW OF SYSTEMS: GENERAL: No fever, chills, weight loss, or fatigue. PHYSICAL EXAMINATION: Blood pressure 120/82, pulse 80, temperature 36.5 ?C (97.7 ?F), temperature source Temporal, resp. rate 14, height 190.5 cm (6' 3), weight 112.5 kg (248 lb), SpO2 97%. GENERAL: WNL nutrition, no deformities, healthy appearing GENITOURINARY: MALE EXAM: Rectal Exam: Prostate: size (30 grams), symmetrical, nontender, w/o nodules. PROBLEM LIST REVIEW: Yes LABS: Results for orders placed or performed in visit on 05/07/24 UA DIP, URINE (POC) Result Value Ref Range GLUCOSE UA (POCT) Negative Negative mg/dL BILIRUBIN UA (POCT) Negative Negative KETONE UA (POCT) Negative Negative mg/dL SPECIFIC GRAVITY UA (POCT) >=1.030 1.005 - 1.030 HEMOGLOBIN/BLOOD UA (POCT) Negative Negative PH UA (POCT) 5.0 4.5 - 8.0 PROTEIN UA (POCT) Negative Negative mg/dL UROBILINOGEN UA (POCT) 0.2 Normal E.U./dL NITRITE UA (POCT) Negative Negative LEUKOCYTES UA (POCT) Negative Negative COLOR UA (POCT) Yellow CLARITY UA (POCT) Clear PROCEDURES: PVR: 37 ml IMAGING: IMPRESSION/PLAN: 1. Elevated prostate specific antigen (PSA) - ICD9: 790.93, ICD10: R97.20 (primary diagnosis) 2. Decreased urine stream - ICD9: 788.62, ICD10: R39.198 3. Screening for genitourinary condition - ICD9: V81.6, ICD10: Z13.89 4. Nocturia - ICD9: 788.43, ICD10: R35.1 > PSA of 5.59, FREDRICK- 30 g benign , contacted PSA with Utan message recommending IsoPSA to see if prostate biopsy is indicated > Flomax working well some LH/Dizziness but taking in AM will switch to bed time > if still LH/Dizzy we will switch to Cardura or Hytrin instead > 1 year Appt w/ CHERISE Dyson, [place], PA-C with PSA prior Iveth Montoya MPAS, VAMSI, GUZMAN [facility] 05-07-2024 History of Presen t illness Narrative Images from the original note were not included. [facility] EST PATIENT CLINIC NOTE NAME: Cale Mckeon CHIEF COMPLAINT: Elevated PSA and weak urine stream HISTORY OF PRESENT ILLNESS: Cale Mckeon is a 63 year old male follow-ing up for weak urine stream elevated PSA The patient reports he has been having a weaker stream over a few years and a recent PSA showed mild elevation We discussed common causes and treatment options currently on Flomax PSA - 5.59 PVR 37 ml if still LH/Dizzy we will switch to Cardura or Hytrin instead LUTS: DYSURIA: no URGENCY: No FREQUENCY:4 per day NOCTURIA: 2 per night STRAINING TO VOID: No EMPTIES COMPLETELY: No UTI: No GROSS HEMATURIA: no UA DIPSTICK POSITIVE ONLY: no Other symptoms: LABS: No results found for: TESTOST No results found for: TESTFREE PSA (ng/mL) Date Value 12/21/2023 5.59 06/22/2023 4.04 PSA Screening (ng/mL) Date Value 11/17/2022 3.52 Hematocrit (%) Date Value 11/17/2022 46.5 PSA (ng/mL) Date Value 12/21/2023 5.59 06/22/2023 4.04 PSA Screening (ng/mL) Date Value 11/17/2022 3.52 Creatinine Date Value Ref Range Status 11/17/2022 1.10 0.73 - 1.22 mg/dL Final MEDICATIONS: tamsulosin (FLOMAX) 0.4 mg Take 1 capsule by mouth daily at bedtime. PAST MEDICAL HISTORY: PAST MEDICAL HISTORY Diagnosis Date Chronic pain of left thumb Decreased urine stream 12/20/2022 Elevated prostate specific antigen (PSA) 12/20/2022 Tinnitus of both ears REVIEW OF SYSTEMS: GENERAL: No fever, chills, weight loss, or fatigue. PHYSICAL EXAMINATION: Blood pressure 120/82, pulse 80, temperature 36.5 C (97.7 F), temperature source Temporal, resp. rate 14, height 190.5 cm (6' 3), weight 112.5 kg (248 lb), SpO2 97%. GENERAL: WNL nutrition, no deformities, healthy appearing GENITOURINARY: MALE EXAM: Rectal Exam: Prostate: size (30 grams), symmetrical, nontender, w/o nodules. PROBLEM LIST REVIEW: Yes LABS: Results for orders placed or performed in visit on 05/07/24 UA DIP, URINE (POC) Result Value Ref Range GLUCOSE UA (POCT) Negative Negative mg/dL BILIRUBIN UA (POCT) Negative Negative KETONE UA (POCT) Negative Negative mg/dL SPECIFIC GRAVITY UA (POCT) >=1.030 1.005 - 1.030 HEMOGLOBIN/BLOOD UA (POCT) Negative Negative PH UA (POCT) 5.0 4.5 - 8.0 PROTEIN UA (POCT) Negative Negative mg/dL UROBILINOGEN UA (POCT) 0.2 Normal E.U./dL NITRITE UA (POCT) Negative Negative LEUKOCYTES UA (POCT) Negative Negative COLOR UA (POCT) Yellow CLARITY UA (POCT) Clear PROCEDURES: PVR: 37 ml IMAGING: IMPRESSION/PLAN: 1. Elevated prostate specific antigen (PSA) - ICD9: 790.93, ICD10: R97.20 (primary diagnosis) 2. Decreased urine stream - ICD9: 788.62, ICD10: R39.198 3. Screening for genitourinary condition - ICD9: V81.6, ICD10: Z13.89 4. Nocturia - ICD9: 788.43, ICD10: R35.1 > PSA of 5.59, FREDRICK- 30 g benign , contacted PSA with Utan message recommending IsoPSA to see if prostate biopsy is indicated > Flomax working well some LH/Dizziness but taking in AM will switch to bed time > if still LH/Dizzy we will switch to Cardura or Hytrin instead > 1 year Appt w/ BCHERISE Cooper MT, PA-C with PSA prior CHERISE Avila MT, PA-C Verified name and date of . CC Post Void Residual HPI: Cale Mckeon is a 63 year old male. The patient is here now for an appointment with CHERISE Avila MT, RACHELLE. Procedure: Explained procedure to patient and verbalizes understanding. Performed a PVR. Patient urinated and instructed to empty bladder as much as possible just prior to having PVR done using bladder ultrasound scanner. Results of scan: 37 mL The patient tolerated the procedure well. Plan: Appointment with Iveth. documented in this encounter [facility] 05-07-2024 Instructions Iveth Montoya PA-C - 05/07/2024 5:08 PM EDT > Flomax at bedtime if still LH/Dizzy we will switch to Cardura or Hytrin instead >Refill Flomax at [facility] > IsoPSA > PSA in 1 year documented in this encounter [facility] 05-07-2024 Note HNO ID: [id number] Author: ANASTACIO DUVALL LPN Service: ? Author Type: LICENSED NURSE Type: Progress Notes Filed: 05/07/2024 21:07 Note Text: Verified name and date of . CC Post Void Residual HPI: Cale Mckeon is a 63 year old male. The patient is here now for an appointment with CHERISE Avila MT, RACHELLE. Procedure: Explained procedure to patient and verbalizes understanding. Performed a PVR. Patient urinated and instructed to empty bladder as much as possible just prior to having PVR done using bladder ultrasound scanner. Results of scan: 37 mL The patient tolerated the procedure well. Plan: Appointment with Iveth. [facility] 05-07-2024 Telephone encounter Note Called patient. Verified name and date of . Patient aware in-person appointment is needed rather than virtual. Patient requests to keep appointment and will be here in person. Anastacio Duvall LPN [facility] 05-07-2024 Miscellaneous Notes Called patient. Verified name and date of . Patient aware in-person appointment is needed rather than virtual. Patient requests to keep appointment and will be here in person. Anastacio Duvall LPN documented in this encounter [facility] 04-23-2024 Telephone encounter Note Please see patient's my chart message and advise. Patient had a PSA last drawn on 12/21/2023. Latest Ref Rng 12/21/2023 PSA <2.60 ng/mL 5.59 (H) Legend: (H) High KRISTA 12/20/2022 with Iveth Montoya PA-C NOV 05/07/2024 with Iveth Montoya PA-C [facility] 04-23-2024 Miscellaneous Notes Please see patient's my chart message and advise. Patient had a PSA last drawn on 12/21/2023. Latest Ref Rng 12/21/2023 PSA <2.60 ng/mL 5.59 (H) Legend: (H) High KRISTA 12/20/2022 with Iveth Montoya PA-C NOV 05/07/2024 with Iveth Montoya PA-C documented in this encounter [facility] 04-11-2024 Telephone encounter Note Patient called, verified name and date of . He scheduled a follow-up visit with Iveth on 05/07/2024, but will be out of his tamsulosin before that visit. Verified pharmacy. Chioma Corrales RN April 11, 2024 9:15 AM [facility] 04-11-2024 Miscellaneous Notes Patient called, verified name and date of . He scheduled a follow-up visit with Iveth on 05/07/2024, but will be out of his tamsulosin before that visit. Verified pharmacy. Chioma Corrales RN April 11, 2024 9:15 AM [facility] 12/20/22 Pt. Needs appt. For refills. documented in this encounter [facility] 04-09-2024 Telephone encounter Note KRISTA 12/20/22 Pt. Needs appt. For refills. [facility] 07-31-2023 History of Presen t illness Narrative Lisette Cardenas PA-C Department of Orthopaedics Orthopaedics [address] [place] [id number] Dept: [phone] July 31, 2023 SUBJECTIVE: CHIEF COMPLAINT: New and Pain of the Left Thumb HPI: Mr. Cale Mckeon is a 62 year old right hand dominant male. He presents today with left thumb pain that has been present intermittently for the past 10 years but worse over the past 4 months. Today he rates his pain a 2 on a scale of 0 to 10 at rest. The pain is worse with activity, especially gripping and fine movements. He describes the pain as an achy pressure. He has not been taking any medication for the pain. He denies any recent injury, numbness/tingling, weakness, locking/catching or previous hand surgery. Past Medical History: PAST MEDICAL HISTORY Diagnosis Date Chronic pain of left thumb Tinnitus of both ears Past Surgical History: PAST SURGICAL HISTORY Procedure Laterality Date INGUINAL HERNIA REPAIR HX x2, about 20 years ago Family History: FAMILY HISTORY Problem Relation Age of Onset Colon Cancer Mother diagnosed at age 86 Blood Disease Father hemochromatosis Cancer Sister pesticide caused Multiple Sclerosis Sister No Known Problems Maternal Grandmother No Known Problems Paternal Grandfather Social History: Social History Tobacco Use Smoking status: Never Smokeless tobacco: Never Vaping Use Vaping Use: Never used Substance Use Topics Alcohol use: Yes Alcohol/week: 7.0 standard drinks of alcohol Types: 7 Shots of liquor per week Comment: one hard liquor beverage daily Drug use: Not Currently Medications: Current Outpatient Medications Medication Sig tamsulosin (FLOMAX) 0.4 mg take 1 capsule by mouth at bedtime No current facility-administered medications for this visit. Allergies: Patient has no known allergies. ROS: General: negative for fatigue, malaise, weight loss/gain Musculoskeletal: see HPI Psych: no depression, anxiety OBJECTIVE: Mr. Cale Mckeon is a pleasant 62 year old in no apparent distress. Gen:Ht 6' 3[patient stated[ (1.91m) nl development, obese, no deformities ENT: Normocephalic, normal hearing, moist mucosa CV: Pulses:Radial= 2+ and symmetric, capillary refill < 2 secs, no peripheral edema/varicosities Skin: no rash, bruising or lesions. Good turgor. Psych: cooperative and appropriate, alert and oriented x 3, good mood and affect. Musculoskeletal: LT thumb with minimal swelling at the base. some tenderness to palpation at the dorsal capsule with minimal crepitance. Painful grind test. Good motion at the MCP and PIP, no locking or catching. MCP without hyperextension. Median, radial and ulnar nerves are intact. Non-tender first dorsal compartment with a negative Linwood's test. IMAGIN06/28/2023 11:23 AM - Radiology, O[place] In Impression IMPRESSION: First carpometacarpal joint degenerative changes Logistics Operations Director: JUSTIN Transcribe Date/Time: Jun 28 2023 11:20A Dictated by : ALEKSANDRA FINN MD This examination was interpreted and the report reviewed and electronically signed by: ALEKSANDRA FINN MD on Jun 28 2023 11:21AM EST Results-Findings * * *Final Report* * * DATE OF EXAM: Jun 28 2023 11:13AM WOX [id number] - XR DIGIT 3V FRONTAL/LAT/OBL LT / PROCEDURE REASON: Pain * * * * Physician Interpretation * * * * TITLE: XR DIGIT 3V FRONTAL/LAT/OBL LT CLINICAL INDICATION: Pain TECHNIQUE: 3 view radiographic study of the left thumb COMPARISON: None FINDINGS: No acute fracture or dislocation identified. Mild first carpal metacarpal joint degenerative changes with joint space narrowing, subchondral sclerosis and marginal osteophyte formation. ASSESSMENT: M19.049 CMC arthritis (primary encounter diagnosis) R52 Pain PLAN: Reviewed images taken previously. Discussed treatment options for cmc arthritis including anti-inflammatories, topical medications and bracing. Patient fit for and given brace to wear as needed for activities. He will follow up as needed. FOLLOW UP INSTRUCTIONS: As needed Lisette Cardenas PA-C documented in this encounter [facility] 06-28-2023 History of Presen t illness Narrative Radiology Service Progress Note PATIENT NAME: Cale Mckeon DATE OF SERVICE: June 28, 2023 TIME: 11:06 AM PATIENT IDENTITY VERIFICATION COMPLETED USING TWO (2) IDENTIFIERS: Name and Date of confirmed by patient verbally. FALL SCREENING: Has the patient had 2 falls in the last year or 1 fall with injury or currently using an Ambulatory Assistive Device (Walker, Cane, Wheelchair, Crutches, etc.)? No PATIENT GENDER DATA: Male PATIENT RELEVANT IMPLANT DATA REVIEWED: Not Applicable RADIOLOGY DEPARTMENT: General X-ray: Exam(s) Completed: Upper Extremity X-Ray(s): Fingers/Thumb, left PERIPHERAL IV DATA: Not applicable SIGNED BY: RT Hung(R) June 28, 2023 11:06 AM documented in this encounter [facility] 03-23-2023 Miscellaneous Notes Last office visit 12/20/22. No future visits scheduled. documented in this encounter [facility] 12-20-2022 Instructions Iveth Montoya PA-C - 12/20/2022 2:36 PM EDT > Flomax Rx sent > 6 months for PSA, No Appointment Needed - 06/2023 > 1 year Appointment with PSA prior - 12/2022 > Future PSA orders are in documented in this encounter [facility] 12-20-2022 History of Presen t illness Narrative Images from the original note were not included. [facility] NEW CONSULT PATIENT CLINIC NOTE SERVICE DATE: 12/20/2022 SERVICE TIME: 1:46 PM NAME: Cale Mckeon Consultation requested by Dimitry Pope MD for an opinion regarding Elevated PSA My final recommendations communicated back to the requesting physician by way of our shared Medical record. CHIEF COMPLAINT: Elevated PSA HISTORY OF PRESENT ILLNESS: Cale Mckeon is a 62 year old male with PMH including weak urine stream presenting for New Patient Consult for elevated PSA The patient reports he has been having a weaker stream over a few years and a recent PSA showed mild elevation We discussed common causes and treatment options PSA 3.52 , mild elevation , no previous PSA 's and only weaker urine stream PVR 93 ml LUTS: DYSURIA: no URGENCY: No FREQUENCY:4 per day NOCTURIA: 2 per night STRAINING TO VOID: No EMPTIES COMPLETELY: No UTI: No GROSS HEMATURIA: no UA DIPSTICK POSITIVE ONLY: no Other symptoms: LABS: No results found for: TESTOST No results found for: TESTFREE PSA Screening (ng/mL) Date Value 11/17/2022 3.52 Hematocrit (%) Date Value 11/17/2022 46.5 PSA Screening (ng/mL) Date Value 11/17/2022 3.52 Creatinine Date Value Ref Range Status 11/17/2022 1.10 0.73 - 1.22 mg/dL Final MEDICATIONS: No prescriptions on file. PAST MEDICAL HISTORY: PAST MEDICAL HISTORY Diagnosis Date Chronic pain of left thumb Tinnitus of both ears PAST SURGICAL HISTORY: PAST SURGICAL HISTORY Procedure Laterality Date INGUINAL HERNIA REPAIR HX x2, about 20 years ago FAMILY HISTORY: FAMILY HISTORY Problem Relation Age of Onset Colon Cancer Mother diagnosed at age 86 Blood Disease Father hemochromatosis Cancer Sister pesticide caused Multiple Sclerosis Sister No Known Problems Maternal Grandmother No Known Problems Paternal Grandfather SOCIAL HISTORY: Social Connections: Moderately Isolated Frequency of Communication with Friends and Family: Never Frequency of Social Gatherings with Friends and Family: Twice a week Attends Orthodoxy Services: Never Active Member of Clubs or Organizations: Yes Attends Club or Organization Meetings: More than 4 times per year Marital Status: REVIEW OF SYSTEMS: GENERAL: No fever, chills, weight loss, or fatigue. ENMT: Negative CARDIOVASCULAR:NO CHEST PAIN, PALPITATIONS, ANKLE EDEMA RESPIRATORY: No chronic cough, wheezing, dyspnea, hemoptysis. GENITOURINARY: SEE HPI MUSCULOSKELETAL:NO CHRONIC BACK PAIN, ARTHRITIS, CHRONIC NECK PAIN SKIN: NO VARICOSE VEINS, RASH, ABNORMAL ITCHING HEME/LYMPH/IMMUNE:Negative for prolonged bleeding, bruising easily or swollen nodes NEUROLOGICAL: NO HEADACHES, NUMBNESS, SEIZURES, STROKE DIABETES: no All other systems reviewed and are negative PHYSICAL EXAMINATION: Blood pressure 114/78, pulse 76, temperature 36.5 C (97.7 F), temperature source Temporal, resp. rate 14, height 188 cm (6' 2), weight 114.3 kg (252 lb), SpO2 96 %. GENERAL: WNL nutrition, no deformities, healthy appearing NEURO: Awake, alert and oriented x 3 and Normal gait PSYCH: No signs of depression, anxiety, or agitation ENMT (Ear, Nose, Mouth, Throat): No masses, adenopathy, icterus. Thyroid nonpalpable RESP: NL effort, no retractions or purse-lip breathing. CV: No extremity swelling, varices, edema, pallor, erythema GASTROINTESTINAL: Soft, nontender, nondistended, no masses. HERNIAS: None SKIN: No rash, lesions No palpable lymphadenopathy MUSCULOSKELETAL: Extremities normal. No deformities, edema, clubbing or skin discoloration. GENITOURINARY: MALE EXAM: Rectal Exam: Prostate: size (30 grams), symmetrical, nontender, w/o nodules. PROBLEM LIST REVIEW: Yes LABS: Results for orders placed or performed in visit on 12/20/22 UA DIP, URINE (POC) Result Value Ref Range GLUCOSE UA (POCT) Negative Negative mg/dL BILIRUBIN UA (POCT) Negative Negative KETONE UA (POCT) Negative Negative mg/dL SPECIFIC GRAVITY UA (POCT) 1.020 1.005 - 1.030 HEMOGLOBIN/BLOOD UA (POCT) Negative Negative PH UA (POCT) 5.5 4.5 - 8.0 PROTEIN UA (POCT) Negative Negative mg/dL UROBILINOGEN UA (POCT) 0.2 Normal E.U./dL NITRITE UA (POCT) Negative Negative LEUKOCYTES UA (POCT) Negative Negative COLOR UA (POCT) Yellow CLARITY UA (POCT) Clear PROCEDURES: PVR: 93 ml IMAGING: IMPRESSION/PLAN: 62 year old male with 1. Decreased urine stream - ICD9: 788.62, ICD10: R39.198 > PSA of 3.52, FREDRICK- 30 g benign > discussed Flomax for slow stream > 3 mo. Appt w/ B. CHERISE Montoya MT, PA-C for new Rx Follow-up I spent a total of 40 minutes on the date of the service which included preparing to see the patient, face to face patient care, completing clinical documentation, obtaining and/or reviewing separately obtained history, performing a medically appropriate examination, counseling and educating the patient/family/caregiver, ordering medications, tests, or procedures, and care coordination. CHERISE Avila MT, PA-C Verified name and date of . CC Post Void Residual HPI: Cale Mckeon is a 62 year old male. The patient is here now for an appointment with CHERISE Avila MT, PA-COV. Procedure: Explained procedure to patient and verbalizes understanding. Performed a PVR. Patient urinated and instructed to empty bladder as much as possible just prior to having PVR done using bladder ultrasound scanner. Results of scan: 93 mL The patient tolerated the procedure well. Plan: Appointment with Iveth. documented in this encounter [facility] 11-16-2022 Instructions Indira Vaughan APRN.CNP - 11/16/2022 6:05 PM EDT Tinnitus- recommend scheduling with ENT/audiology Schedule appointment with urologist documented in this encounter [facility] 11-16-2022 History of Presen t illness Narrative CC: Patient presents with: Establish Care HPI Cale Mckeon is a 61 year old male who presents today for above. Exercise: denies regular aerobic exercise. Sedentary lifestyle. Diet: Watches diet for salt (salty snacks, added salt, processed frozen/canned foods), sugary/sweet snacks, unhealthy fats: most of the time REVIEW OF SYSTEMS GENERAL: positive for fatigue. Denies fever, chills, night sweats HEENT: He has high pitched tinnitus and mild hearing loss. Negative for frequent or significant headaches, significant change in vision, significant vision problems RESPIRATORY: SOB with moderate exertion. Negative for cough, wheezing CARDIOVASCULAR: Negative for chest pain, leg swelling and palpitations GI: occasional heartburn depending on what he eats Negative for abdominal discomfort, blood in stools or black stools, change in bowel habit, nausea, vomiting : Negative for dysuria, incontinence, hematuria, and urgency and Positive for decreased stream , hesitancy , and nocturia >1 MUSCULOSKELETAL: He reports chronic pain in the base of the left thumb. Aggravated by picking up/grasping things. He works with his hands a lot daily. Negative for: other joint pain or swelling and back pain PSYCH: Negative for sleep disturbance, mood disorder and recent psychosocial stressors. PAST MEDICAL HISTORY Diagnosis Date Patient denies medical problems PAST SURGICAL HISTORY Procedure Laterality Date INGUINAL HERNIA REPAIR HX x2, about 20 years ago ALLERGIES Patient has no known allergies. MEDICATIONS No prescriptions on file. FAMILY HISTORY Problem Relation Age of Onset Colon Cancer Mother diagnosed at age 86 Blood Disease Father hematochromatosis Cancer Sister pesticide caused Multiple Sclerosis Sister No Known Problems Maternal Grandmother No Known Problems Paternal Grandfather Social History Tobacco Use Smoking status: Never Smokeless tobacco: Never Vaping Use Vaping Use: Never used Substance Use Topics Alcohol use: Yes Alcohol/week: 7.0 standard drinks Types: 7 Shots of liquor per week Comment: one hard liquor beverage daily Drug use: Not Currently PHYSICAL EXAM BP 116/78 Pulse 69 Resp 16 Ht 188 cm (6' 2) Wt 114.3 kg (252 lb) SpO2 97% BMI 32.35 kg/m General Appearance: well appearing, in no acute distress, alert Pysch: mood and affect broad and appropriate Skin: Skin color, texture, turgor normal for age; Eyes: conjunctiva pink and moist, no icterus, sclera white, non-injected Lymph nodes: No supraclavicular lymphadenopathy Lungs: Lungs clear to auscultation. No wheezing, rhonchi, rales. Heart: RRR without murmur, gallop, or rubs. No ectopy Ext: no edema in LE bilaterally, good distal pulses Health maintenance reviewed with patient: HEPATITIS C SCREENING Never done HIV SCREENING Never done DTAP,TDAP,TD(1 - Tdap) Never done LIPID SCREEN Never done DIABETES SCREEN Never done COLORECTAL CANCER SCREENING Never done SHINGRIX VACCINE(1 of 2) Never done PROSTATE CANCER SCREENING DISCUSSION Never done COVID-19 VACCINE(3 - Booster for Elie series) due on 10/05/2021 DEPRESSION ASSESSMENT Never done INFLUENZA(Season Ended) due on 04/14/2023 Depression Screening 11/09/2022 11/16/2022 PHQ-2 Score 2 2 PHQ-9 Score 3 - Depression screening tool completed and reviewed. Based on score and interview, patient is not at risk for depression. Screening tool discussed with patient, and I recommended no further intervention at this time. ASSESSMENT/PLAN: 1. Wellness examination - ICD9: V70.0, ICD10: Z00.00 (primary diagnosis) - Counseled on healthy diet and regular exercise - Discussed need for and benefit of weight loss. BMI 32.35 kg/(m^2) - Colorectal cancer screening recommended - agrees to Cologuard - Risks/benefits of prostate cancer screening discussed. screening PSA ordered - Counseled on limiting alcohol intake to 2 drinks per day - Patient was counseled [id number] by myself (the billing provider) for the following immunizations and vaccine components, including side effects: COVID-19, Shingrix, and TdaP. Patient declined - Follow up for annual exam in one year - LIPID PANEL BASIC - COMP METABOLIC PANEL - CBC + DIFF - IRON + TIBC - FERRITIN BLD 2. Decreased urine stream - ICD9: 788.62, ICD10: R39.198 - CONSULT TO UROLOGY 3. Chronic pain of left thumb - ICD9: 729.5, 338.29, ICD10: M79.645, G89.29 Differentials include osteoarthritis, de Quervain's tenosynovitis. Given handout including exercises. Follow-up if symptoms worsen 4. Tinnitus of both ears - ICD9: 388.30, ICD10: H93.13 Follow-up with ENT 5. Screening for prostate cancer - ICD9: V76.44, ICD10: Z12.5 - PSA/PROSTSPECAG SCRN 6. Special screening examination for viral disease - ICD9: V73.99, ICD10: Z11.59 - HEP C AB IA W/CONF SCRN 7. Screening for HIV (human immunodeficiency virus) - ICD9: V73.89, ICD10: Z11.4 - HIV 1 2 COMBO(AG/AB),WITH REFLEX TO DIFFERENTIATION 8. Screening for colon cancer - ICD9: V76.51, ICD10: Z12.11 - COLOGUARD 9. Family history of hemochromatosis Check CBC and iron studies Prescription instructions reviewed with patient as applicable. Potential red flag symptoms discussed with the patient. Reviewed appropriate action plan to take if red flag symptoms occur. Patient agreeable to treatment plan. Indira Vaughan APRN.CNP documented in this encounter [facility] Evaluation note Diagnosis Wellness examination- Primary Decreased urine stream Slowing of urinary stream Chronic pain of left thumb Tinnitus of both ears Unspecified tinnitus Screening for prostate cancer Special screening for malignant neoplasm of prostate Special screening examination for viral disease Special screening examination for unspecified viral disease Screening for HIV (human immunodeficiency virus) Special screening examination for other specified viral diseases Screening for colon cancer Special screening for malignant neoplasms, colon Family history of hemochromatosis Family history of other endocrine and metabolic diseases [facility] Elevated prostate specific antigen (PSA)- Primary Decreased urine stream Slowing of urinary stream Nocturia [facility] Diagnosis [facility]MC arthritis- Primary Unspecified arthropathy, hand Pain Generalized pain [facility] Diagnosis Pain Generalized pain [facility] Diagnosis Elevated prostate specific antigen (PSA)- Primary Decreased urine stream Slowing of urinary stream Screening for genitourinary condition Screening for other and unspecified genitourinary condition Nocturia [facility] No[facility] Diagnosis Wellness examination- Primary Obesity, Class I, BMI 30-34.9 Obesity, unspecified Dyslipidemia Other and unspecified hyperlipidemia Screening for depression Encounter for screening examination for other mental health and behavioral disorders [facility] noteNo assessment information availableWAultman Alliance [facility] Work Phone: Reason for referral (narrative)* Diagnostic Procedure Only (Urgent) - Closed Specialty Diagnoses / Procedures Referred By Contac t Referred To Contact XR IMAGING Diagnoses Pain Procedures XR DIGIT GENERAL 3V FRONTAL/LAT/OBL LEFT RADEX FINGR MINIMUM 2 VIEWS Duyen Urban APRN.[employer] [address] [place] [address] [place] [address] Referral ID Status Reason Start Date Expiration Date V isits Requested Visits Authorized [id number] Closed Auto-Generate d Referral 06/28/2023 07/27/2024 1 1 [facility] (narrative)No reason for referral information availableWAultman Alliance Community Hospital Work Phone: Rerdmq for visit Narrative* Diagnostic Procedure Only (Urgent) - Closed Specialty Diagnoses / Procedures Referred By Contac t Referred To Contact XR IMAGING Diagnoses Pain Procedures XR DIGIT GENERAL 3V FRONTAL/LAT/OBL LEFT RADEX FINGR MINIMUM 2 VIEWS Duyen Urban APRN.[employer] [address] [place] [address] [place] [address] Referral ID Status Reason Start Date Expiration Date V isits Requested Visits Authorized [id number] Closed Auto-Generate d Referral 06/28/2023 07/27/2024 1 1 [facility] Reason for Referral Specialty Diagnoses / Procedures Referred By Contac t Referred To Contact Urology Diagnoses Decreased urine stream Procedures CONSULT TO UROLOGY OFFICE/OUTPATIENT NEW HIGH MDM 60-74 MINUTES Older, DARRON Jacobson.[employer] [address] [place] [address] Referral ID Status Reason Start Date Expiration Date Visits Requested Visits Authorized [id number] Pending Review PCP Requested Referral 11/16/2022 11/16/2023 1 1 Chief Complaint and Reason for Visit Chief Complaint Admit Date FASTING January 01, 2025 10:41 am Summary Purpose Family History No Family History Records FoundNo Family History Records Found Advance Directives No Advanced Directives Records FoundNo Advanced Directives Records Found Additional Source Comments Source Comments (unrecognize d section and content) In the event this informatio n is protected by the Federal Confidentiality of Alcohol and Drug Abuse Patient Records regulations: The Federal rules restrict any use of the information to criminally investigate or prosecute any alcohol or drug abuse patient.[facility] the event this information is protected by the Federal Confidentiality of Alcohol and Drug Abuse Patient Records regulations: The Federal rules restrict any use of the information to criminally investigate or prosecute any alcohol or drug abuse patient.[facility] the event this information is protected by the Federal Confidentiality of Alcohol and Drug Abuse Patient Records regulations: The Federal rules restrict any use of the information to criminally investigate or prosecute any alcohol or drug abuse patient.[facility] the event this information is protected by the Federal Confidentiality of Alcohol and Drug Abuse Patient Records regulations: The Federal rules restrict any use of the information to criminally investigate or prosecute any alcohol or drug abuse patient.[facility] the event this information is protected by the Federal Confidentiality of Alcohol and Drug Abuse Patient Records regulations: The Federal rules restrict any use of the information to criminally investigate or prosecute any alcohol or drug abuse patient.[facility]In the event this information is protected by the Federal Confidentiality of Alcohol and Drug Abuse Patient Records regulations: The Federal rules restrict any use of the information to criminally investigate or prosecute any alcohol or drug abuse patient.[facility]In the event this information is protected by the Federal Confidentiality of Alcohol and Drug Abuse Patient Records regulations: The Federal rules restrict any use of the information to criminally investigate or prosecute any alcohol or drug abuse patient.[facility]In the event this information is protected by the Federal Confidentiality of Alcohol and Drug Abuse Patient Records regulations: The Federal rules restrict any use of the information to criminally investigate or prosecute any alcohol or drug abuse patient.[facility]In the event this information is protected by the Federal Confidentiality of Alcohol and Drug Abuse Patient Records regulations: The Federal rules restrict any use of the information to criminally investigate or prosecute any alcohol or drug abuse patient.[facility]In the event this information is protected by the Federal Confidentiality of Alcohol and Drug Abuse Patient Records regulations: The Federal rules restrict any use of the information to criminally investigate or prosecute any alcohol or drug abuse patient.[facility]In the event this information is protected by the Federal Confidentiality of Alcohol and Drug Abuse Patient Records regulations: The Federal rules restrict any use of the information to criminally investigate or prosecute any alcohol or drug abuse patient.[facility]In the event this information is protected by the Federal Confidentiality of Alcohol and Drug Abuse Patient Records regulations: The Federal rules restrict any use of the information to criminally investigate or prosecute any alcohol or drug abuse patient.[facility]In the event this information is protected by the Federal Confidentiality of Alcohol and Drug Abuse Patient Records regulations: The Federal rules restrict any use of the information to criminally investigate or prosecute any alcohol or drug abuse patient.[facility]In the event this information is protected by the Federal Confidentiality of Alcohol and Drug Abuse Patient Records regulations: The Federal rules restrict any use of the information to criminally investigate or prosecute any alcohol or drug abuse patient.[facility]In the event this information is protected by the Federal Confidentiality of Alcohol and Drug Abuse Patient Records regulations: The Federal rules restrict any use of the information to criminally investigate or prosecute any alcohol or drug abuse patient.[facility] Reason for Visit (unrecogniz ed section and content) Reason Comments Establish Care Reason Comments Consult decreased urine stream Elevated PSA Specialty Diagnoses / Procedures Referred By Contac t Referred To Contact Urology Diagnoses Decreased urine stream Procedures CONSULT TO UROLOGY OFFICE/OUTPATIENT NEW HIGH MDM 60-74 MINUTES Indira Vaughan APRN.BUILDINGS [employer] GROUNDS SUPERINTENDENT [address] [place] [address] Referral ID Status Reason Start Date Expiration Date Visits Requested Visits Authorized [id number] Pending Review PCP Requested Referral 11/16/2022 11/16/2023 1 1 Reason Comments Refill Request Reason Comments New Pain Specialty Diagnoses / Procedures Referred By Contac t Referred To Contact Orthopedics Diagnoses Pain Procedures CONSULT TO ORTHOPAEDICS OFFICE/OUTPATIENT NEW HIGH MDM 60-74 MINUTES Duyen Urban APRN.[employer]OUN[employer] SUPERINTENDENT [address] [place] [address] Referral ID Status Reason Start Date Expiration Date V isits Requested Visits Authorized [id number] Closed PCP Requested Referral 06/28/2023 06/27/2024 1 1 Reason Onset Date Comments Refill Request 04/08/2024 Reason Comments Appointment Reason Comments Follow Up Elevated PSA Reason Comments Results Reason Onset Date Comments Refill Request 10/22/2024 Reason Onset Date Comments Refill Request 11/05/2024 Reason Comments Physical Care Teams (unrecognized sec tion and content) Emergency Service Restorer Relationship Specialty Start Date End Date Dimitry Pope MD [address] [place], [place] [id number] PCP - General Internal Medicine 11/16/22 Emergency Service Restorer Relationship Specialty Start Date End Date Dimitry Pope MD [address] [place], [place] [id number] PCP - General Internal Medicine 11/16/22 Emergency Service Restorer Relationship Specialty Start Date End Date Dimitry Pope MD [address] [place], [place] [id number] PCP - General Internal Medicine 11/16/22 Emergency Service Restorer Relationship Specialty Start Date End Date Indira Najera, MACHINE LACER.BUILD[employer]OUNDS SUPERINTENDENT [address] [facility] [place] [address] PCP - General Internal Medicine 07/31/23 Emergency Service Restorer Relationship Specialty Start Date End Date nIdira Najera, MACHINE LACER.BUILD[employer] GROUNDS SUPERINTENDENT [address] [facility] [place] [address] PCP - General Internal Medicine 07/31/23 Emergency Service Restorer Relationship Specialty Start Date End Date Dimitry Pope MD [address] [facility] [place] [address] PCP - General Internal Medicine 11/16/22 07/30/23 Emergency Service Restorer Relationship Specialty Start Date End Date Indira Najera, MACHINE LACER.BUILDINGS [employer] GROUNDS SUPERINTENDENT [address] [facility] [place] [address] PCP - General Internal Medicine 07/31/23 Emergency Service Restorer Relationship Specialty Start Date End Date Indira Najera, MACHINE LACER.BUILDINGS AND GROUNDS SUPERINTENDENT [address] [facility] [place] [address] PCP - General Internal Medicine 07/31/23 Emergency Service Restorer Relationship Specialty Start Date End Date Indira Najera, MACHINE LACER.BUILDINGS [employer] GROUNDS SUPERINTENDENT [address] [facility] [place] [address] PCP - General Internal Medicine 07/31/23 Emergency Service Restorer Relationship Specialty Start Date End Date Indira Najera, MACHINE LACER.BUILDINGS [employer] GROUNDS SUPERINTENDENT [address] [place] [address] PCP - General Internal Medicine 07/31/23 Emergency Service Restorer Relationship Specialty Start Date End Date nIdira Najera, MACHINE LACER.BUILDINGS [employer] GROUNDS SUPERINTENDENT [address] [facility] [place] [address] PCP - General Internal Medicine 07/31/23 Emergency Service Restorer Relationship Specialty Start Date End Date Indira Najera, MACHINE LACER.BUILD[employer] GROUNDS SUPERINTENDENT [address] [place] [address] PCP - General Internal Medicine 07/31/23 Team Status: Active Member Role Status Dates Indira Najera NP, SALES OPERATIONS MANAGER-C Primary Care Provider Active Team Status: Inactive Member Role Status Dates Indira Najera NP SALES OPERATIONS MANAGER-C Primary Care Provider Active Start: January 01, 2025 End: January 01, 2025 Indira Najera NP, NP-Jeniffer Attending Provider Active Start: January 01, 2025 End: January 01, 2025 Indira Najera NP, NP-Jeniffer Referring Provider Active Start: January 01, 2025 End: January 01, 2025 Goals (unrecognized section and content) Goals may be documented in a n alternate section (unrecognized sect ion and content) No Status Records FoundNo Status Records Found INFORMATION SOURCE (unrecogn ized section and content) DATE CREATED AUTHOR 01/11/2025 [facility] DATE CREATED AUTHOR 'Miguelito LOPEZ 01/13/2025 [facility] FOR RECORDS PERTAINING TO PATIENTS WHO ARE OR HAVE BEEN ENROLLED IN A CHEMICAL DEPENDENCY/SUBSTANCEABUSE PROGRAM, SOME INFORMATION MAY BE OMITTED. This clinical summary was aggregated from multiple sources. Caution should be exercised in using it in the provision of clinical care. This summary normalizes information from multiple sources, and as a consequence, information in this document may materially change the coding, format and clinical context of patient data. In addition, data may be omitted in some cases. CLINICAL DECISIONS SHOULD BE BASED ON THE PRIMARY CLINICAL RECORDS. [employer] provides no warranty or guarantee of the accuracy or completeness of information in this document.
[2025-05-06 15:38] LABS: PSA,Total- Diagnostic 5.55 ng/mL (0.00-4.00)
== END | disposition home or self-care (01) ==
LOC: MTLAB 10:47
PROVIDERS: PCP Nurse Practitioner; Referring Provider Physician Assistant Medical; Visit Provider Physician Assistant Medical
DX: R35.1 Nocturia (principal); R97.20 Elevated prostate specific antigen [PSA]
CPT/HCPCS: 36415; 84153